=== PATIENT | female | born 1995 | race African-American/Black ===

== ENCOUNTER → 2018-01-11 | Outpatient (CLI) | payer OTHER ==
[~2018-01-11] MED LIST: MTR600X PO; OXYC5TAB PO; TRAZ50TA35 PO
[2018-01-11 13:43] LABS: BASO % 0.2 %; BASO ABS # 0.02 K/uL (0-0.2); EOS % 0.6 %; EOS ABS # 0.05 K/uL (0-0.5); HEMATOCRIT 42.6 % (37-47); HEMOGLOBIN 13.7 g/dL (12.0-16.0); IG# 0.01 K/uL (0.00-0.02); LYMPH % 24.5 %; LYMPH ABS # 2.09 K/uL (1.2-3.4); MEAN CORPUSCULAR HEMOGLOBIN 28.3 pg (25-34); MEAN CORPUSCULAR HGB CONC 32.2 g/dl (32-36); MEAN PLATELET VOLUME 13.7 fL (7.4-10.4); MONO % 3.4 %; MONO ABS # 0.29 K/uL (0.11-0.59); NEUT % 71.2 %; NEUT ABS # 6.06 K/uL (1.4-6.5); PLATELET COUNT 222 K/uL (130-400); RED CELL DISTRIBUTION WIDTH CV 12.9 % (11.5-14.5); RED CELL DISTRIBUTION WIDTH SD 41.6 fL (36.4-46.3); WHITE BLOOD COUNT 8.52 K/uL (4.8-10.8)
[2018-01-11 14:37] LABS: BLOOD UREA NITROGEN 12 mg/dl (7-18); CALCIUM 9.2 mg/dl (8.5-10.1); CARBON DIOXIDE 26 mmol/L (21-32); CHOLESTEROL 169 mg/dl (0-200); CREATININE 0.86 mg/dl (0.60-1.20); GLUCOSE,FASTING 99 mg/dl (70-99); POTASSIUM 3.9 mmol/L (3.5-5.1); SODIUM 139 mmol/L (136-145)
[2018-01-11 14:48] LABS: LDL CHOLESTEROL CALCULATED 90 mg/dl
== END | disposition home or self-care (01) ==
LOC: C.LABPBG 09:21
PROVIDERS: ATTEND Psychiatry & Neurology Psychiatry
DX: Z79.899 Other long term (current) drug therapy (principal); F31.60 Bipolar disorder, current episode mixed, unspecified; F41.9 Anxiety disorder, unspecified

== ENCOUNTER 2018-05-29 09:18 | Emergency (ER) | payer OTHER ==
[~2018-05-29] VITALS: Ht 149.9 cm; Wt 58.4 kg
[2018-05-29 09:20] VITALS: BP 116/84; PULSE 97; TEMP 36.8; O2SAT 100; Ht 149.9 cm; Wt 58.4 kg
[2018-05-29] MEDS ORDERED: PROPARACAINE HCL 0.5% OP SOLN 15 ML BTL OP STA (09:25)
[2018-05-29] MEDS ORDERED: ERYTHROMYCIN OP OINT 1 GM PKT OPB STA (10:19)
--- NOTE | 2018-05-29 10:25 | EMERGENCY ROOM VISIT NOTE ---
ED Visit Note First contact with patient: 09:23 CHIEF COMPLAINT: Bilateral eye redness and burning. HISTORY OF PRESENT ILLNESS: This 22-year-old female presents to ER with chief complaint of bilateral eye redness and burning sensation. The patient states that she slept last night with her monthly contacts and and woke up at 230 this morning with both her eyes watery and burning. She states she was rubbing her eyes all night. She took the contacts out. The patient denies any visual changes. The patient denies any purulent drainage from the eyes. REVIEW OF SYSTEMS: 6 system review was performed and was negative unless stated otherwise in history of present illness. PMH: The patient is healthy; SOCIAL HISTORY: Patient lives alone. The patient denies any tobacco use but admits to occasional alcohol use. PHYSICAL EXAM: Vital Signs: Were reviewed reviewed Nurse's notes. GENERAL: This is a healthy-appearing 22-year-old female who is uncomfortable from the eye problem. MENTAL Status: Alert and oriented 3. EYES: The pupils are round , equal, and react to light. EOMs are full. There is discharge of clear tears from both eyes which are injected. There is no foreign body visible under athe eyelid even after lid eversion. No foreign body was seen embedded in the cornea. Slit lamp exam revealed: The cornea was clear and no hyphema was seen. Fluorescein uptake was observed with ultraviolet light at the 6 o'clock position over the iris of the right eye. Left eye was clear. EMERGENCY DEPARTMENT COURSE: The fluorescein was irrigated away and erythromycin eye ointment was put into both eyes. The patient was given the remainder of the ointment to take home and use as directed. The patient was discharged home in stable condition. DIAGNOSIS: Right corneal abrasion Bilateral conjunctivitis DISCHARGE INSTRUCTIONS AND TREATMENT: Put the erythromycin ointment into each eye 4 times a day. . Return here or see an orthopedic specialist if it is not improving in 2 days. Take ibuprofen and/or Tylenol as needed for pain. Do not wear your contacts until symptoms have resolved. Current/Historical Medications Scheduled PRN Ibuprofen (Ibuprofen), 600 MG PO Q4H PRN for Pain, BARRIOS, Cramping, or Fever Oxycodone/Acetaminophen 5MG/325MG (Roxicet 5MG/325MG), 1 TAB PO Q4H PRN for Pain - Pain Scale 1-5 Miscellaneous Medications Trazodone Hcl (Trazodone), 50 MG PO Allergies Coded Allergies: No Known Allergies (Unverified , 01/14/16) Vital Signs Date Time Temp Pulse Resp B/P (MAP) Pulse Ox O2 Delivery O2 Flow Rate FiO2 05/29/18 09:20 36.8 97 18 116/84 100 Room Air Medications Administered Medications (Trade) Dose Ordered Sig/Joshua Route Start Time Stop Time Status Last Admin Dose Admin Proparacaine HCl (Alcaine 0.5% Oph Soln) 2 drops NOW STAT OP 05/29/18 09:25 05/29/18 09:26 DC 05/29/18 09:47 2 DROPS Departure Information Referrals No Doctor, Assigned (PCP) Patient Instructions My [facility]
[2018-05-29] MEDS ORDERED: ERYOPO OPB (10:27)
[2018-05-29] MEDS ORDERED: ERYTHROMYCIN OP OINT 5 MG/GM 3.5 GM TUBE ONE (10:33)
[2018-05-29] MEDS ORDERED: ERYTHROMYCIN OP OINT 5 MG/GM 3.5 GM TUBE OPB ONE (10:45)
== END 2018-05-29 10:43 | disposition home or self-care (01) ==
LOC: C.EDB 09:19 → C.EDA 10:43
DX: S05.01XA Injury of conjunctiva and corneal abrasion without foreign body, right eye, initial encounter (principal); H10.9 Unspecified conjunctivitis; X58.XXXA Exposure to other specified factors, initial encounter

== ENCOUNTER 2019-01-11 01:20 | Inpatient (IN) ==
[2019-01-11] MEDS ORDERED: LACTATED RINGER'S 1,000 ML IV SCH ×2 (01:30→02:29)
[2019-01-11] MEDS ORDERED: CITRIC ACID/SODIUM CITRATE 15 ML UDC PO SCH (01:30)
[2019-01-11] MEDS ORDERED: CEFAZOLIN 2000MG 2,000 MG/15 ML SYR IV SCH (01:30)
--- NOTE | 2019-01-11 01:33 | History & Physical Report ---
Date of Service January 11, 2019 Assessment & Plan (1) Spontaneous onset of labor: 23yo @ 36 01/27, spontaneous labor with h/o with desire for repeat. Will obtain labs, EFM/Rollins, Ancef/bicitra, proceed to OR. I discussed with her RBA of section, she is agreeable to this. Informed consent obtained. Questions answered. History of Present Illness Chief Complaint: Spontaneous labor, h/o x 1. Desire for repeat. Primary Care Provider: NO PCP 23yo @ 35 01/27 presents in spontaneous labor. Rupture of membranes approx 12am. complicated by h/o x 1, desire for repeat. GBS carrier. Bipolar disorder - no meds. She called on-call at 12a, stating clear fluid ROM with no contractions. She was instructed to come to [facility], had plans to drop off her son on the way to the hospital. About 20 minutes later, she called L&D screaming and stating she was in severe pain, with blood everywhere. She was instructed by L&D nurses to call 911 and come to the hospital immediately. I called patient back, trying to get more information, phone cut out. I called boyfriend's cell phone, he stated he was driving her to the hospital in his car, but stuck behind a tractor-trailer. I instructed him to call 911 to get assistance through traffic to be able to get to [facility] as quickly as possible. Upon arrival to L&D, patient is in extreme pain, is writhing in bed, states she has pain with contractions but not in-between. Allergies Allergy/AdvReac Type Severity Reaction Status Date / Time No Known Allergies Allergy Verified 01/09/19 13:50 Home Medications Home Medications Medication Instructions Recorded Confirmed Type PNV cmb#95-ferrous fumarate-FA 1 tab PO QAM 01/09/19 01/09/19 History [] ondansetron 4 mg PO TID PRN 01/09/19 01/09/19 History Patient History Medical History Nausea and vomiting after administration of anesthetic agent SEVERE N/V DURING/AFTER PREVIOUS No known health problems Surgical History History of section History of wisdom tooth extraction Social History Preferred Language: [place] marital status: Single Current Living Situation: Family Feels Safe at Home: Yes Smoking Status: Never smoker Hx Alcohol Use: No Hx Substance Use: No Review of Systems All systems reviewed & are unremarkable except as noted in HPI & below Physical Exam Vital Signs (Past 24 Hours): Gen: AAOx3 NAD CV: RRR L: CTAB Abd: soft, gravid. Ext: no edema SVE: /-2. Grossly ruptured, red-tinged amniotic fluid. FHT cat 1, toco Q 2 min
[2019-01-11] MEDS ORDERED: CITRIC ACID/SODIUM CITRATE 15 ML UDC ONE (01:39)
[2019-01-11 01:54] LABS: Nucleated RBC # (auto) 0.02 K/uL (0-0); Nucleated RBC % (auto) 0.2 %
[2019-01-11 02:01] LABS: Hematocrit (blood only) 35.1 % (37-47); Hemoglobin 11.8 g/dL (12.0-16.0); Mean Corpuscular Volume 87.1 fL (80-100); RDW Coefficient of Variation 13.7 % (11.5-14.5); RDW Standard Deviation 43.4 fL (36.4-46.3); Red Blood Count 4.03 M/uL (4.2-5.4); White Blood Count 10.42 K/uL (4.8-10.8)
[2019-01-11] MEDS ORDERED: fentaNYL citrate 100 MCG/2 ML VIAL ONE (02:04)
[2019-01-11] MEDS ORDERED: MoRPHine SULFATE PF 1 MG/ML 10 ML AMP/VIAL ONE (02:04)
[2019-01-11 02:11] LABS: Mean Corpuscular Hgb Conc 33.6 g/dL (32-36); Platelet Count 144 K/uL (130-400)
[2019-01-11 02:13] LABS: Basophils # (auto) 0.02 K/uL (0-0.2); Basophils % (auto) 0.2 %; Eosinophils # (auto) 0.04 K/uL (0-0.5); Eosinophils % (auto) 0.4 %; Immature Granulocytes # (auto) 0.02 K/uL (0.00-0.02); Immature Granulocytes % (auto) 0.2 %; Lymphocytes # (auto) 3.15 K/uL (1.2-3.4); Lymphocytes % (auto) 30.2 %; Monocytes # (auto) 0.71 K/uL (0.11-0.59); Monocytes % (auto) 6.8 %; Neutrophils # (auto) 6.48 K/uL (1.4-6.5); Neutrophils % (auto) 62.2 %; Platelet Estimate Normal (Normal)
[2019-01-11] MEDS ORDERED: ONDANSETRON INJ 2 MG/ML 2 ML VIAL ONE (02:51)
[2019-01-11] MEDS ORDERED: KETOROLAC 30 MG/ML VIAL ONE (02:51)
[2019-01-11] MEDS ORDERED: METOCLOPRAMIDE HCL INJ 5 MG/ML 2 ML VIAL ONE (02:51)
[2019-01-11] MEDS ORDERED: OXYTOCIN 10 UNITS/ML VIAL ONE (02:51)
[2019-01-11] MEDS ORDERED: PHENYLEPHRINE 100MCG/ML 5ML SYR ONE (02:52)
--- NOTE | 2019-01-11 03:17 | Operative Report ---
Post Operative Report Pre & Post Diagnosis Operation Date: 01/11/19 01:50 Pre-Op Diagnosis: 1. Spontaneous Rupture of membranes with desire for Repeat Post-Op Diagnosis: same Procedure Operation Date: 01/11/19 01:50 Actual Procedures p Repeat low transverse Section in LD - Skyla Blanco DO Surgeon Skyla Blanco DO Blister Pack Operator A Bumbarger RN Estimated Blood Loss 700 Findings Consistent with Post-Op Diagnosis Viable male , Apgars 6/8, Wt 4#13. Normal appearing uterus, tubes, ovaries. Specimens Placenta, cord blood, cord gases. Drains Garcia, clear yellow Anesthesia Type Spinal Complications none Disposition Accompanied Patient To Recovery: Yes Disposition: L&D Indications 23yo @ 35 01/27 in spontaneous labor, history of x 1, desire for repeat. Description of Procedure Patient presented in spontaneous labor, history of section x1, desire for repeat. She was andie every 2 minutes, and severe pain, and making cervical change prior to . She is taken to the operating room, where spinal anesthesia was administered. She is prepared and draped in the usual sterile fashion in the supine position with a leftward tilt. She was infused with 2 g of Ancef preoperatively. Timeout was confirmed. A Pfannenstiel skin incision was made with a scalpel and her prior incision was removed. This incision was carried through to the underlying layer of the fascia. The fascia was nicked at midline, this ends incision was extended both bluntly and sharply. The superior aspect of the rectus abdominis muscle was grasped with [place] clamps x2, elevated off the underlying rectus abdominis muscles, and dissected. In a similar fashion the inferior aspect of the incision was dissected. The rectus abdominis muscles were midline. The peritoneum was entered bluntly digitally, this incision was extended bluntly. The bladder blade was placed. The bladder flap was taken down using Metzenbaum scissors. The low transverse uterine incision was made with a scalpel, this incision was extended bilaterally bluntly. The infant's face was at the incision site, in direct occiput posterior position. The head was delivered, nuchal cord x1 was noted and easily reduced. The anterior shoulder was delivered followed by the posterior shoulder, followed by the body. The cord was doubly clamped and cut the baby was handed over to waiting promotions assistant sales marketing, and a spontaneous cry was heard. A cord segment was obtained for cord gases. The placenta was delivered spontaneously intact with three-vessel cord. The uterus exteriorized, and cleared of all clots and debris. The uterus became firm and Pitocin was given. The hysterotomy incision was reapproximated using 0 Vicryl in a running locked stitch. Another stitch of the same suture was used to imbricate the incision. Posterior uterus was evaluated and found to be normal. The uterus was returned to the abdomen. The hysterotomy incision was noted to be hemostatic. The fascial incision was reapproximated using 0 Vicryl in a running stitch. The subcutaneous tissue was irrigated. This was then reapproximated with 2-0 plain gut suture. The skin incision was reapproximated using 0 Vicryl in a running subcuticular stitch. Steri-Strips and a bandage were applied. Sponge, instrument, needle counts were correct x2 at the conclusion of the delivery. The patient tolerated the procedure well, and she and baby are taken to the labor room to recover. I attest to the content of the Intraoperative Record and any orders documented therein. Any exceptions are noted below.
--- NOTE | 2019-01-11 03:26 | Anesthesiology Consultation ---
Date of Service January 11, 2019 Assessment & Plan (1) Encounter for pre-operative examination: Chart Review Chart Review: Acceptable Risk for Surgery and Patient NOT seen in Pre Admission Testing Consults Requested none ASA [id number] Proposed Anesthesia Anesthesia Type: Spinal Risk / Benefits Reviewed With: PT / POA / Parent / Guardian, Accepts Plan and I nformed Consent Obtained NPO Date Last Intake of Fluids: 01/10/19 Time Last Intake of Fluids: 19:00 Date Last Intake of Solids: 01/10/19 Last Intake of Solids Comment: 1900 History Surgery Operation Date: 01/11/19 01:50 Proposed Procedures p Section in - Skylatravis Blanco DO Allergies Allergy/AdvReac Type Severity Reaction Status Date / Time No Known Allergies Allergy Verified 01/09/19 13:50 Medications Home Medications Medication Instructions Recorded Confirmed Last Taken PNV cmb#95-ferrous fumarate-FA 1 tab PO QAM 01/09/19 01/09/19 Unknown [] ondansetron 4 mg PO TID PRN 01/09/19 01/09/19 Unknown Active Medications Generic Name Dose Route Start Last Admin Trade Name Freq PRN Reason Stop Dose Admin Cefazolin Sodium 2,000 mg in 15 mls @ 3.75 mls/min 01/11/19 01:30 01/11/19 02:02 Ancef 2000mg IV 01/11/19 04:00 3.75 mls/min TODAY@0130 PURVI Administration Protocol Past Medical History Medical History Nausea and vomiting after administration of anesthetic agent SEVERE N/V DURING/AFTER PREVIOUS No known health problems Past Surgical History Surgical History History of section History of wisdom tooth extraction Social History Smoking Status: Never smoker tobacco type: cigarettes Hx Alcohol Use: No Hx Substance Use: No Physical Exam Vital Signs Last Vital Signs Temp 37.0 C 01/11/19 03:17 Pulse 118 H 01/11/19 03:19 Resp 18 01/11/19 03:17 BP 110/58 L 01/11/19 03:18 Pulse Ox 100 01/11/19 03:19 Constitutional Gravid abdomen ENMT Mouth: no TMJ abnormality Thyromental Distance: > or= 3.5 Finger Breadths Mallampati Class: II Neck normal visual inspection Respiratory normal respiratory effort Cardiovascular Rate/Rhythm: regular rate and regular rhythm Neurologic moves all extremities Psychiatric Orientation: alert Testing Laboratory Results 01/11/19 01:37 Blood Type O Positive 01/11/19 01:37 Antibody Screen NEGATIVE 01/11/19 01:37
[2019-01-11] MEDS ORDERED: NALBUPHINE HCL INJ 10 MG/ML AMP IV PRN (03:27)
[2019-01-11] MEDS ORDERED: ONDANSETRON INJ 2 MG/ML 2 ML VIAL IV PRN ×2 (03:27→21:28)
[2019-01-11] MEDS ORDERED: HYDROmorphone INJ 0.5 MG/0.5 ML SYR IV PRN (03:27)
[2019-01-11] MEDS ORDERED: NALOXONE HCL 0.4 MG/1 ML VIAL/CARP IV PRN (03:27)
[2019-01-11] MEDS ORDERED: NALOXONE HCL 0.08 MG in SYRINGE 1.8 ML IV PRN (03:27)
[2019-01-11] MEDS ORDERED: LACTATED RINGER'S 500 ML IV PRN (03:27)
[2019-01-11] MEDS ORDERED: ePHEDrine sulfate 50 MG/ML AMP IV PRN (03:27)
[2019-01-11] MEDS ORDERED: MoRPHine SULFATE PF 1 MG/ML 10 ML AMP/VIAL INT SPINAL ONE (03:27)
[2019-01-11] MEDS ORDERED: MoRPHine SULFATE 2 MG/ML CARP IV PRN (03:27)
[2019-01-11] MEDS ORDERED: NALOXONE HCL 1 MG in SODIUM CHLORIDE 0.9% 1000ML 1,000 ML IV PRN (03:27)
[2019-01-11] MEDS ORDERED: DiphenhydrAMINE HCL 50 MG/ML VIAL IV PRN ×3 (03:27→21:28)
[2019-01-11] MEDS ORDERED: METOCLOPRAMIDE HCL 5 MG in SODIUM CHLORIDE 0.9% 50 ML IV PRN (03:27)
[2019-01-11] MEDS ORDERED: PROMETHAZINE HCL 6.25 MG in SODIUM CHLORIDE 0.9% 50 ML IV PRN (03:27)
[2019-01-11] MEDS ORDERED: DC INTRASPINAL MORPHINE SCH (03:30)
[2019-01-11] MEDS ORDERED: NO NARCOTICS OR SEDATIVES SCH (03:30)
[2019-01-11] MEDS ORDERED: SODIUM CHLORIDE 0.9% 1000ML 1,000 ML IV SCH (03:30)
--- NOTE | 2019-01-11 03:35 | Anesthesiology Progress Note ---
Date of Service January 11, 2019 Anesthesia Post Procedure Vital Signs Vital Signs: Temp Pulse Resp BP Pulse Ox 01/11/19 03:32 138 H 91 01/11/19 03:29 110 H 100 01/11/19 03:24 126 H 99 01/11/19 03:19 118 H 100 01/11/19 03:18 116 H 110/58 L 01/11/19 03:17 37.0 C 18 01/11/19 01:37 89 129/88 01/11/19 01:25 36.7 C 18 Notes Mental Status: alert / awake / arousable Nausea / Vomiting: adequately controlled Pain: adequately controlled Airway Patency, RR, SpO2: stable & adequate BP & HR: stable & adequate Hydration State: stable & adequate Neuraxial Anesthesia: was administered and sensory block is resolving Anesthetic Complications: no major complications apparent
[2019-01-11] MEDS ORDERED: MAGNESIUM HYDROXIDE SUSP 30 ML UDC PO PRN (03:50)
[2019-01-11] MEDS ORDERED: SENNA 8.6 MG TAB PO PRN (03:50)
[2019-01-11] MEDS ORDERED: SUPERCREAM 0.870% 15 GM JAR EXT PRN (03:50)
[2019-01-11] MEDS ORDERED: OXYTOCIN 30 UNITS in LACTATED RINGER'S 1,000 ML IV SCH (03:50)
[2019-01-11] MEDS ORDERED: DIPHTHERIA/TETANUS/PERTUSSIS 0.5 ML SYR/VIAL IM ONE (03:50)
[2019-01-11] MEDS ORDERED: HYDROCORTISONE ACETATE 25 MG SUPP PR PRN (03:50)
[2019-01-11] MEDS ORDERED: BENZOCAINE 20% AER SPR 82.5 GM CAN EXT PRN (03:50)
[2019-01-11 05:41] LABS: Base Excess Cord Venous Blood -2.6 mEq/L (-7.7-1.9); Cord Venous Blood HCO3 23 mmol/L (18.4-26.8); Cord Venous Blood PCO2 43 mmHg (30.4-57.2); Cord Venous Blood PO2 22 mmHg (14.1-43.3); Cord Venous Blood pH 7.35 (7.20-7.44); O2 Saturation Cord Venous Bld < 60.0 % (<68)
[2019-01-11 05:42] LABS: Base Excess Cord Arterial Bld -3.6 mEq/L (-9-1.8); CO2 Cord Arterial Blood 57 mmHg (39.1-73.5); HCO3 Cord Arterial Blood 25 mmol/L (19.7-28.5); PO2 Cord Arterial Blood 12.6 % (4.1-31.7); pH Cord Arterial Blood 7.26 (7.1-7.38)
[2019-01-11] MEDS: LACTATED RINGER'S 1,000 ML IV SCH ×2 (06:27→17:12)
[2019-01-11] MEDS: KETOROLAC 30 MG/ML VIAL IV PRN ×2 (08:14→15:27)
[2019-01-11] MEDS: SIMETHICONE 80 MG CHEW PO SCH ×4 (09:53→20:26)
[2019-01-11] MEDS: PRENATAL VITAMIN 1 TAB PO SCH (09:54)
[2019-01-11] MEDS: FERROUS SULFATE 325 MG TAB PO SCH (09:55)
[2019-01-11] MEDS: DOCUSATE SODIUM 100 MG CAP PO SCH ×2 (09:55→20:25)
[2019-01-11] MEDS: MEPERIDINE HCL 25 MG/ML CARP IV PRN ×5 (11:08→20:33)
--- NOTE | 2019-01-11 11:50 | Anesthesiology Progress Note ---
Date of Service January 11, 2019 Anesthesia Post Procedure Vital Signs Vital Signs: Temp Pulse Resp BP Pulse Ox 01/11/19 06:39 81 100 01/11/19 06:34 105 H 99 01/11/19 06:29 94 H 100 01/11/19 06:26 75 129/56 L 01/11/19 06:24 88 99 01/11/19 05:49 79 96 01/11/19 05:47 86 93 01/11/19 05:44 103 H 96 01/11/19 05:42 77 94 01/11/19 05:39 82 96 01/11/19 05:36 85 90 01/11/19 05:34 76 126/62 97 01/11/19 05:29 86 96 01/11/19 05:24 90 97 01/11/19 05:20 18 01/11/19 05:19 87 97 01/11/19 05:14 94 H 97 01/11/19 05:12 77 93 01/11/19 05:09 99 H 97 01/11/19 05:04 83 96 01/11/19 04:59 108 H 97 01/11/19 04:54 85 96 01/11/19 04:53 83 110/63 01/11/19 04:50 18 01/11/19 04:49 81 97 01/11/19 04:44 77 95 01/11/19 04:39 89 96 01/11/19 04:34 95 H 97 01/11/19 04:33 94 H 103/58 L 01/11/19 04:29 79 96 01/11/19 04:24 102 H 97 01/11/19 04:23 75 108/56 L 01/11/19 04:20 18 01/11/19 04:19 89 98 01/11/19 04:14 91 H 98 01/11/19 04:13 83 104/56 L 01/11/19 04:09 106 H 97 01/11/19 04:04 109 H 99 01/11/19 04:03 102 H 110/68 01/11/19 03:59 94 H 98 01/11/19 03:54 92 H 99 01/11/19 03:53 95 H 103/55 L 01/11/19 03:50 18 01/11/19 03:49 91 H 98 01/11/19 03:46 93 H 110/56 L 01/11/19 03:44 105 H 100 01/11/19 03:40 18 01/11/19 03:39 110 H 98 01/11/19 03:34 110 H 99 01/11/19 03:32 138 H 91 01/11/19 03:30 18 01/11/19 03:29 110 H 100 01/11/19 03:24 126 H 99 01/11/19 03:20 37.0 C 18 01/11/19 03:19 118 H 100 01/11/19 03:18 116 H 110/58 L 01/11/19 03:17 37.0 C 18 01/11/19 01:37 89 129/88 01/11/19 01:25 36.7 C 18 Pain Intensity Bilateral Lower Abdomen: Pain Intensity: 8 Notes Mental Status: alert / awake / arousable Patient Amnestic to Procedure: Yes Nausea / Vomiting: adequately controlled Pain: adequately controlled Airway Patency, RR, SpO2: stable & adequate BP & HR: stable & adequate Hydration State: stable & adequate Anesthetic Complications: no major complications apparent and Pt Satisfied with anesthetic care
[2019-01-11] MEDS ORDERED: KETOROLAC 30 MG/ML VIAL IV PRN (21:28)
[2019-01-11] MEDS ORDERED: PROMETHAZINE HCL 25 MG in SODIUM CHLORIDE 0.9% 50 ML IV PRN (21:28)
[2019-01-11] MEDS: IBUPROFEN 600 MG TAB PO PRN (23:54)
[2019-01-11] MEDS: OXYCODONE/ACETAMINOPHEN 5mg/325mg TAB PO PRN (23:56)
[2019-01-12] MEDS: IBUPROFEN 600 MG TAB PO PRN ×3 (03:55→19:04)
[2019-01-12] MEDS: OXYCODONE/ACETAMINOPHEN 5mg/325mg TAB PO PRN ×4 (03:57→21:06)
--- NOTE | 2019-01-12 07:07 | Obstetrical Progress Note ---
Date of Service <Christiano Conner DO - Last Filed: 01/12/19 07:07> January 12, 2019 Assessment & Plan <Christiano Conner DO - Last Filed: 01/12/19 07:07> (1) Status post section routine follow-up: -vital signs reviewed and WNL -last Hgb 11.8 -Blood type: O+, GBS+, Rubella Immune -pt doing well clinically -encourage ambulation, monitor and control pain with motrin tylenol, cont regular diet, monitor lochia -cont monitor PO intake Subjective <Christiano Conner - Last Filed: 01/12/19 07:07> 23 y/o POD1 found in bed this morning in NAD. Reports no acute overnight events. Pt states that she has no pain other than appropriate soreness. Pt has not been able to tolerate PO food intake 2/2 nausea and decreased appetite. Shows interest in food however, tolerating PO liquids. Able to ambulate without issue. She is bottle feeding without issue. No issues with voiding, no BM yet. No other acute concerns or complaints. Physical Exam <Christiano Conner - Last Filed: 01/12/19 07:07> Vital Signs (Past 24 Hours) Last Vital Signs Temp 36.6 C 01/12/19 00:05 Pulse 66 01/12/19 00:05 Resp 18 01/12/19 00:05 BP 103/67 01/12/19 00:05 Pulse Ox 98 01/11/19 21:30 Constitutional WD/WN, vitals as above Eyes conjunctivae normal ENMT external ear and nose normal, oropharynx normal Respiratory normal respiratory effort, lungs clear to auscultation Cardiovascular RRR, no murmur, no edema Gastrointestinal (Abdomen) moderate lower abd tenderness Incision C/D/I FBU Skin no rashes, warm and dry Psychiatric A+Ox3, euthymic affect Lymphatic no LE swelling, no calf tenderness Results & Data <Christiano Conner - Last Filed: 01/12/19 07:07> Medications Administered Current Inpatient Medications Benzocaine (Dermoplast Pain Relieving [place]) 1 appln EXT UD PRN PRN Reason: use on skin as needed Stop: 02/10/19 03:49 Bisacodyl (Dulcolax) 5 mg PO 2000 [facility] Stop: 01/12/19 20:01 Bisacodyl (Dulcolax) 10 mg UT PRN PRN PRN Reason: Constipation Stop: 02/12/19 03:08 Cocaine HCl (Supercream 0.870%) 1 gm EXT UD PRN PRN Reason: hemmorrhoidal inflammation Stop: 01/25/19 03:49 Diphenhydramine HCl (Benadryl) 25 mg IV QID PRN PRN Reason: Itching Stop: 02/10/19 21:27 Diphenhydramine HCl (Benadryl Capsule) 25 mg PO QID PRN PRN Reason: Itching Stop: 02/10/19 21:27 Docusate Sodium (Colace) 100 mg PO BID [facility] Stop: 02/10/19 08:59 Last Admin: 01/11/19 20:25 Dose: 100 mg Documented by: Ferrous Sulfate (Feosol) 325 mg PO QAM [facility] Stop: 02/10/19 08:59 Last Admin: 01/11/19 09:55 Dose: 325 mg Documented by: Hydrocortisone (Anusol Hc) 25 mg UT BID PRN PRN Reason: Hemorrhoids Stop: 02/10/19 03:49 Promethazine HCl 25 mg/ Sodium (Chloride) 51 mls @ 204 mls/hr IV Q4H PRN PRN Reason: Nausea And Vomiting Stop: 02/10/19 21:27 Lactated Ringer's (Lr) 1,000 mls @ 125 mls/hr IV .Q8H PURVI Stop: 02/10/19 03:49 Last Admin: 01/11/19 17:12 Dose: 125 mls/hr Documented by: Ibuprofen (Motrin) 600 mg PO Q4H PRN PRN Reason: Pain Stop: 02/10/19 03:49 Last Admin: 01/12/19 03:55 Dose: 600 mg Documented by: Ketorolac Tromethamine (Toradol) 30 mg IV Q6H PRN PRN Reason: Pain Stop: 01/16/19 21:27 Magnesium Hydroxide (Milk Of Magnesia) 30 ml PO HS PRN PRN Reason: Constipation Stop: 02/10/19 03:49 Ondansetron HCl (Zofran) 4 mg IV Q4H PRN PRN Reason: Nausea And Vomiting Stop: 02/10/19 21:27 Oxycodone/Acetaminophen (Percocet 5mg/325mg) 1 - 2 tab PO Q4H PRN PRN Reason: Pain Stop: 01/25/19 21:27 Last Admin: 01/12/19 03:57 Dose: 2 tab Documented by: Prenat Multivit/[place]/Iron/Folic Ac ( Vitamin) 1 tab PO QAM PURVI Stop: 02/10/19 08:59 Last Admin: 01/11/19 09:54 Dose: 1 tab Documented by: Sennosides (Senokot) 17.2 mg PO HS PRN PRN Reason: Constipation Stop: 02/10/19 03:49 Simethicone (Mylicon) 80 mg PO QID PURVI Stop: 02/10/19 08:59 Last Admin: 01/11/19 20:26 Dose: 80 mg Documented by: <Melinda Martinez MD, FACOG - Last Filed: 01/12/19 07:55> Co-Signing Physician Notes Resident Physician Supervision Note: I interviewed and examined the patient. Discussed with Dr. Conner and agree with findings and plan as documented in the note. Any exceptions or clarifications are listed here: When I entered the room, patient was anxious and tearful. she notes she has not had good pain management all night. Notes has had some oral pain meds but did not help alot. Very anxious about this and more painful then last time. Will get on top of this. Patient also notes she sees Dr. Berg and requests to see her/psych today. There is apparantly a plan for pp meds but she does not know what it is. Documented By: Melinda Martinez MD, FACOG Resident Activity Tracking <Christiano Conner DO - Last Filed: 01/12/19 07:07> Resident Involvement: Resident Care Provided Care Provided: OB Delivery
[2019-01-12 07:15] LABS: Mean Corpuscular Hgb Conc 33.6 g/dL (32-36)
[2019-01-12 07:32] LABS: Hematocrit (blood only) 26.8 % (37-47); RDW Coefficient of Variation 13.7 % (11.5-14.5); RDW Standard Deviation 43.3 fL (36.4-46.3); Red Blood Count 3.08 M/uL (4.2-5.4); White Blood Count 12.54 K/uL (4.8-10.8)
[2019-01-12 07:42] LABS: Platelet Count 106 K/uL (130-400)
[2019-01-12 07:44] LABS: Basophils # (auto) 0.03 K/uL (0-0.2); Basophils % (auto) 0.2 %; Eosinophils # (auto) 0.06 K/uL (0-0.5); Eosinophils % (auto) 0.5 %; Immature Granulocytes # (auto) 0.02 K/uL (0.00-0.02); Immature Granulocytes % (auto) 0.2 %; Lymphocytes # (auto) 2.78 K/uL (1.2-3.4); Lymphocytes % (auto) 22.2 %; Monocytes # (auto) 0.57 K/uL (0.11-0.59); Monocytes % (auto) 4.5 %; Neutrophils # (auto) 9.08 K/uL (1.4-6.5); Neutrophils % (auto) 72.4 %; Platelet Estimate Decreased (Normal); RBC Morphology Unremarkable
[2019-01-12] MEDS: FERROUS SULFATE 325 MG TAB PO SCH (08:28)
[2019-01-12] MEDS: PRENATAL VITAMIN 1 TAB PO SCH (08:28)
[2019-01-12] MEDS: DOCUSATE SODIUM 100 MG CAP PO SCH ×2 (08:28→21:06)
[2019-01-12] MEDS: SIMETHICONE 80 MG CHEW PO SCH ×4 (08:29→21:06)
--- NOTE | 2019-01-12 13:31 | Anesthesiology Progress Note ---
Date of Service January 12, 2019 Anesthesia Post Procedure Vital Signs Vital Signs: Temp Pulse Resp BP Pulse Ox 01/12/19 08:00 36.4 C L 62 18 103/69 100 01/12/19 00:05 36.6 C 66 18 103/67 01/11/19 21:30 18 98 01/11/19 20:35 36.7 C 80 18 117/80 98 01/11/19 18:42 20 98 01/11/19 17:45 20 96 01/11/19 16:45 20 100 01/11/19 15:45 36.8 C 78 20 96/57 L 98 01/11/19 14:02 22 100 01/11/19 14:00 20 97 Pain Intensity Bilateral Lower Abdomen: Pain Intensity: 9 Notes Mental Status: alert / awake / arousable Patient Amnestic to Procedure: Yes Nausea / Vomiting: adequately controlled Pain: adequately controlled Airway Patency, RR, SpO2: stable & adequate BP & HR: stable & adequate Hydration State: stable & adequate Neuraxial Anesthesia: was administered and sensory block resolved Anesthetic Complications: no major complications apparent and Pt Satisfied with anesthetic care
--- NOTE | 2019-01-12 17:41 | Psychiatric Consultation ---
Date of Consultation January 12, 2019 Impression / Recommendations Impression 23-year-old female s/p delivery at 36-weeks gestation. Pt diagnosed with bipolar disorder, type 1; PTSD; and cannabis abuse - no reported use since learning of . Pt follows with Dr. Berg as an outpatient and records from [facility] reviewed. Discussed with patient her last medication regimen as well as the possibility of quetiapine being mentioned as a medication option post-. Pt reported desire to return to previous medications. She is agreeable to restarting oxcarbazepine at 150mg BID and Vraylar 1.5mg daily. Risks and benefits reviewed. Vraylar prescription sent to preferred pharmacy as non-formulary in the hospital, boyfriend will warehouse picker and bring to unit. Pt is planning to bottle feed exclusively, highly encouraged to inform medical providers should this change. Fasting glucose and lipid panel ordered for tomorrow AM as last drawn 01/11/2018. Pt will also be provided with trazodone 50mg qHS for reported insomnia as she reports she has not been sleeping well. Agree with patient's desire to resume medications to prevent mood instability in the . Pt denies any thoughts of harm toward herself or her baby. Denies attachment concerns at this time. Will have liaison call [facility] on Monday to schedule follow-up appointment with Dr. Begr, as patient has no-showed for her last several appointments. Pt encouraged to request for return visit should other concerns arise. Appreciate the opportunity to participate in the care of this patient. Dr. Shilpa Berg was directly involved in review and discussion of the patient's case and participated in medical decision making regarding treatment recommendations. Risk Factors Assessment Male: No Do You Have Access To A Gun?: No Health Problems: No Mental Health Diagnoses: Yes Substance Use Disorders: Yes (no reported use since learning of ) Previous Attempt: No Family History of Suicide: No Previous Psychiatric Hospitalization: Yes Hopelessness: No Protective Factors Assessment : No Responsible for Young Children: Yes Stable Relationships: No CPT Code Initial Consultation: 50531 Psych History Identifying Data 23-year-old female who delivered her second child on 01/11/19 via section following spontaneous onset of labor. Pt has a psychiatric history of bipolar disorder, PTSD, and cannabis abuse - discontinuing medications when learned of . Psychiatric consultation requested as patient sees Dr. Berg as an outpatient and is interested in medication restart now that she has delivered. Chief Complaint "I've just been more emotional. She prescribes my meds and I want to go back on." History of Present Illness Deena Shelton is a 23-year-old female admitted medically with spontaneous onset of labor at 36-weeks gestation. Pt delivered on 01/11/19 via section. Pt had requested psychiatric consultation given that her psychotropic medications had been discontinued during her . Pt has a history of bipolar disorder, PTSD, and cannabis abuse. She follows with Dr. Berg as an outpatient and verbalizes desire to return to pre- medications. Pt reports feeling more "emotional" over the course of her and has been interested in re-starting medications when she was able. Pt verifies that she is planning to bottle fed exclusively. Pt had reported being off medications for "10 months" and states she has noticed episodes of increased sadness and tearfulness. She reported feeling "more manic" over the summer. Pt denies any acute psychiatric concerns and states she wishes to resume medications to avoid worsening of mood. Pt denies thoughts to harm herself or her baby. Reviewed previous medications regimen along with previous response to quetiapine. Pt reports desire to resume medication regimen from prior to - oxcarbazapine 300mg BID and Vraylar 4.5mg daily. We discussed initiating treatment at lower doses to avoid side effects, especially given recent delivery. Pt denies SI/HI, A/V hallucinations, paranoia, OCD, and appetite concerns. Anxiety is elevated due to delivering before her scheduled on 01/28/19. Past Psychiatric History Previous Psych History: Outpatient medication management with Dr. Berg, [facility]; seen by Adriane Schmidt for therapy; no history of suicide attempt, 3 known inpatient psychiatric admissions ( - 2008, 2012, 2017) Current Psychiatric Diagnosis: Bipolar disorder, type 1; PTSD; cannabis abuse Outpatient Services: Psychiatrist - Dr. Berg; [facility] Therapist - Adriane Schmidt Previous Psych Admissions: [facility] - [facility]: 2008, 2012, 2017 Do You Have Access To A Gun?: No History of Previous Suicide Attempt: No Past Medication Trials: Abilify - may have been helpful although at the time was stopped due to jitteriness although patient reports that was from anxiety. not willing to retry Klonopin helpful lamictal-was helpful but hated the taste Seroquel IR - caused extreme weight gain of almost 70 lbs Seroquel XR did not cause weight gain, per patient Risperdal - trial years ago, pt did not recall impact but has since stated did not work for her trazodone made groggy but helped with sleep vistaril Ambien prazosin Buspar Tenex lithium-helped but was noncompliant with blood draws at the time Celexa Benadryl, various issues of noncomplaince with meds thoruhgout med trials Saphris - failed even when had reported good compliance at full dosage Geodon - failed Intuniv Latuda - failed Gabapentin Invega - stopped few weeks into trial December 2016, 6mg lowered to 3mg before stopping over muscular aches Zyprexa - significant wt gain but was effective Depakote - stopped due to not being on control Lamotrigine - noncompliant, kept missing doses and having to resume titration (never got over 100mg dose) Vraylar - stopped 05/2018 when found out Trileptal - stopped 05/2018 when found out Klonopin - stopped 05/2018 when found out . Allergies Allergy/AdvReac Type Severity Reaction Status Date / Time No Known Allergies Allergy Verified 01/09/19 13:50 Home Medications Home Medications Medication Instructions Recorded Confirmed Type vit-iron fum-folic ac 1 tab PO DAILY 01/11/19 01/11/19 History [ Vitamin] Family History Mother and sister with bipolar disorder and opioid addiction; mother with alcoholism - no family history of suicide attempts Substance Abuse History no drug or alcohol use since learning of Personal History Highest Grade Completed Comment: completed [employer] Number Of Children: 2 Beliefs That Will Affect Care: None Patient History Medical History Nausea and vomiting after administration of anesthetic agent SEVERE N/V DURING/AFTER PREVIOUS No known health problems Surgical History History of section History of wisdom tooth extraction Social History Preferred Language: Maldivian Communication Ability: Effective Senior Qa Analyst Required: No Beliefs That Will Affect Care: None marital status: Single Current Living Situation: Family Other Information That Helps Us Care for You: No Feels Safe at Home: Yes Safety Concerns: Feels Safe At This Time Smoking Status: Never smoker Hx Alcohol Use: No Hx Substance Use: No Physical Exam Psychiatric Orientation: alert, oriented x 3 and cooperative Apperance: appropriately dressed (in hospital gown), appropriately groomed and appeared stated age Eye Contact: + fair eye contact Motor Behavior: no abnormal motor movements (observed while laying in bed) Speech: normal rate/rhythm/volume of speech Affect: + blunted affect Mood: + depressed mood and + anxious mood "I'm just more emotional" Thought Process: goal directed thought process, linear/logical thought process and clear/coherent thought process Thought Content: reality based without delusions Suicidal Thoughts: denies suicidal thoughts Homicidal Thoughts: denies homicidal thoughts Hallucinations: no auditory hallucinations and no visual hallucinations Cognition: recent memory grossly intact, remote memory grossly intact, attention grossly intact and language grossly intact Estimated Intelligence: average estimated intelligence Insight: good insight Judgement: good judgement Vital Signs (Past 24 Hours) Last Vital Signs Temp 36.4 C L 01/12/19 08:00 Pulse 62 01/12/19 08:00 Resp 18 01/12/19 08:00 BP 103/69 01/12/19 08:00 Pulse Ox 100 01/12/19 08:00 Review of Systems Constitutional: reports manageable pain related to delievery Cardiovascular: denied Respiratory: denied Gastrointestinal: episodes of nausea Neurological: denied Psychiatric: denies symptoms other than stated above Total of at least 10 systems reviewed, pertinent positives as above and in HPI. Results & Data Medications Administered Docusate Sodium (Colace) 100 mg PO BID [facility] Stop: 02/10/19 08:59 Last Admin: 01/12/19 08:28 Dose: 100 mg Documented by: [id number] Admin: 01/11/19 20:25 Dose: 100 mg Documented by: [id number] Admin: 01/11/19 09:55 Dose: 100 mg Documented by: [id number] Ferrous Sulfate (Feosol) 325 mg PO QAM [facility] Stop: 02/10/19 08:59 Last Admin: 01/12/19 08:28 Dose: 325 mg Documented by: [id number] Admin: 01/11/19 09:55 Dose: 325 mg Documented by: [id number] Lactated Ringer's (Lr) 1,000 mls @ 125 mls/hr IV .Q8H [facility] Stop: 02/10/19 03:49 Last Admin: 01/11/19 17:12 Dose: 125 mls/hr Documented by: [id number] Infusion: 01/11/19 12:30 Dose: 125 mls/hr Documented by: [id number] Infusion: 01/11/19 06:27 Dose: 0 mls/hr Documented by: [id number] Admin: 01/11/19 06:27 Dose: 125 mls/hr Documented by: [id number] Ibuprofen (Motrin) 600 mg PO Q4H PRN PRN Reason: Pain Stop: 02/10/19 03:49 Last Admin: 01/12/19 13:58 Dose: 600 mg Documented by: [id number] Admin: 01/12/19 03:55 Dose: 600 mg Documented by: [id number] Admin: 01/11/19 23:54 Dose: 600 mg Documented by: [id number] Ketorolac Tromethamine (Toradol) 30 mg IV Q6H PRN PRN Reason: Pain Stop: 01/16/19 21:27 Last Admin: 01/12/19 07:37 Dose: 30 mg Documented by: [id number] Oxycodone/Acetaminophen (Percocet 5mg/325mg) 1 - 2 tab PO Q4H PRN PRN Reason: Pain Stop: 01/25/19 21:27 Last Admin: 01/12/19 11:17 Dose: 1 tab Documented by: [id number] Admin: 01/12/19 03:57 Dose: 2 tab Documented by: [id number] Admin: 01/11/19 23:56 Dose: 1 tab Documented by: [id number] Prenat Multivit/Dairy Equipment Installer/Iron/Folic Ac ( Vitamin) 1 tab PO QAM [facility] Stop: 02/10/19 08:59 Last Admin: 01/12/19 08:28 Dose: 1 tab Documented by: [id number] Admin: 01/11/19 09:54 Dose: 1 tab Documented by: [id number] Simethicone (Mylicon) 80 mg PO QID [facility] Stop: 02/10/19 08:59 Last Admin: 01/12/19 13:59 Dose: 80 mg Documented by: [id number] Admin: 01/12/19 08:29 Dose: 80 mg Documented by: [id number] Admin: 01/11/19 20:26 Dose: 80 mg Documented by: [id number] Admin: 01/11/19 17:03 Dose: 80 mg Documented by: [id number] Admin: 01/11/19 14:01 Dose: 80 mg Documented by: [id number] Admin: 01/11/19 09:53 Dose: 80 mg Documented by: [id number]
[2019-01-12] MEDS ORDERED: BISACODYL 5 MG TABEC PO SCH (20:00)
[2019-01-12] MEDS: OXcarbazepine 150 MG TABLET PO SCH (21:06)
[2019-01-12] MEDS: TRAZODONE HCL 50 MG TAB PO SCH (23:19)
[2019-01-13] MEDS ORDERED: BISACODYL 10 MG SUPP PR PRN (03:09)
[2019-01-13] MEDS: IBUPROFEN 600 MG TAB PO PRN ×3 (04:47→16:56)
[2019-01-13 07:41] LABS: Hematocrit (blood only) 28.6 % (37-47); Hemoglobin 9.4 g/dL (12.0-16.0)
[2019-01-13 08:04] LABS: Glucose Fasting 70 mg/dl (70-99)
[2019-01-13 08:10] LABS: Chol HDL Ratio 3; Cholesterol 240 mg/dl (0-200); HDL Cholesterol 86 mg/dl; LDL Cholesterol Calculated 123 mg/dl; Triglycerides 157 mg/dl (0-150); VLDL Cholesterol 31 mg/dl
--- NOTE | 2019-01-13 08:46 | Obstetrical Progress Note ---
Date of Service January 13, 2019 Postoperative day #2 from section patient is well she does feel somewhat more discomfort in her last but is tolerating pain with oral pain medication she is ambulating no extremity pain minimal bleeding Assessment & Plan (1) Status post section routine follow-up: Postoperative day #2 continue current care Physical Exam Vital Signs (Past 24 Hours) Last Vital Signs Temp 36.8 C 01/12/19 23:20 Pulse 93 H 01/12/19 23:20 Resp 18 01/12/19 23:20 BP 110/74 01/12/19 23:20 Pulse Ox 99 01/12/19 15:51 Vital signs are stable she is afebrile abdomen soft nontender uterus firm incision clean dry and intact extremity exam negative
[2019-01-13] MEDS: OXYCODONE/ACETAMINOPHEN 5mg/325mg TAB PO PRN ×4 (09:02→20:44)
[2019-01-13] MEDS: OXcarbazepine 150 MG TABLET PO SCH ×2 (09:03→20:37)
[2019-01-13] MEDS: DOCUSATE SODIUM 100 MG CAP PO SCH ×2 (09:03→20:36)
[2019-01-13] MEDS: PRENATAL VITAMIN 1 TAB PO SCH (09:03)
[2019-01-13] MEDS: SIMETHICONE 80 MG CHEW PO SCH ×4 (09:03→20:45)
[2019-01-13] MEDS: FERROUS SULFATE 325 MG TAB PO SCH (09:03)
[2019-01-13] MEDS ORDERED: TRAZODONE HCL 50 MG TAB PO PRN (10:57)
[2019-01-13 18:34] VITALS: O2SAT 98
[2019-01-13] MEDS: TRAZODONE HCL 50 MG TAB PO SCH (23:55)
[2019-01-14] MEDS: IBUPROFEN 600 MG TAB PO PRN (06:21)
--- NOTE | 2019-01-14 07:20 | Obstetrical Progress Note ---
Date of Service January 14, 2019 Postop day #3 the patient is doing well ambulating well tolerating oral diet the psych team has seen the patient and has follow-up and has her on the correct medication she states patient has no extremity pain Assessment & Plan (1) Status post section routine follow-up: Home, psych f/u Physical Exam Vital Signs (Past 24 Hours) Last Vital Signs Temp 36.6 C 01/13/19 23:45 Pulse 71 01/13/19 23:45 Resp 18 01/13/19 23:45 BP 111/75 01/13/19 23:45 Pulse Ox 98 01/13/19 15:00 Abdomen is soft nontender uterus is firm nontender incision clean dry and intact extremity exam negative
[2019-01-14] MEDS: OXYCODONE/ACETAMINOPHEN 5mg/325mg TAB PO PRN (08:53)
[2019-01-14] MEDS: PRENATAL VITAMIN 1 TAB PO SCH (09:09)
[2019-01-14] MEDS: OXcarbazepine 150 MG TABLET PO SCH (09:09)
[2019-01-14] MEDS: FERROUS SULFATE 325 MG TAB PO SCH (09:09)
[2019-01-14] MEDS: SIMETHICONE 80 MG CHEW PO SCH (09:09)
[2019-01-14] MEDS: DOCUSATE SODIUM 100 MG CAP PO SCH (09:09)
[2019-01-14 09:46] VITALS: BP 130/81; PULSE 96; TEMP 98.1
--- NOTE | 2019-01-15 08:24 | Discharge Summary ---
Date of Service January 23, 2019 Admission HPI Per Admitting Provider Deena Shelton is a 23-year-old female admitted medically with spontaneous onset of labor at 36-weeks gestation. Pt delivered on 01/11/19 via section. Pt had requested psychiatric consultation given that her psychotropic medications had been discontinued during her . Pt has a history of bipolar disorder, PTSD, and cannabis abuse. She follows with Dr. Berg as an outpatient and verbalizes desire to return to pre- medications. Pt reports feeling more "emotional" over the course of her and has been interested in re-starting medications when she was able. Pt verifies that she is planning to bottle fed exclusively. Pt had reported being off medications for "10 months" and states she has noticed episodes of increased sadness and tearfulness. She reported feeling "more manic" over the summer. Pt denies any acute psychiatric concerns and states she wishes to resume medications to avoid worsening of mood. Pt denies thoughts to harm herself or her baby. Reviewed previous medications regimen along with previous response to quetiapine. Pt reports desire to resume medication regimen from prior to - oxcarbazapine 300mg BID and Vraylar 4.5mg daily. We discussed initiating treatment at lower doses to avoid side effects, especially given recent delivery. Pt denies SI/HI, A/V hallucinations, paranoia, OCD, and appetite concerns. Anxiety is elevated due to delivering before her scheduled on 01/28/19. Discharge Data Consultations 01/11/19 01:29 Consult Anesthesiology Stat 01/12/19 07:33 Consult Psychiatry Routine Procedures Performed Operation Date: 01/11/19 01:50 Actual Procedures p Section in LD Live male @ 0226 (Bilateral) - Skyla Blanco DO
--- NOTE | 2019-01-22 17:41 | Discharge Summary ---
Date of Service January 22, 2019 Admission HPI Per Admitting Provider Deena Shelton is a 23-year-old female admitted medically with spontaneous onset of labor at 36-weeks gestation. Pt delivered on 01/11/19 via section. Pt had requested psychiatric consultation given that her psychotropic medications had been discontinued during her . Pt has a history of bipolar disorder, PTSD, and cannabis abuse. She follows with Dr. Berg as an outpatient and verbalizes desire to return to pre- medications. Pt reports feeling more "emotional" over the course of her and has been interested in re-starting medications when she was able. Pt verifies that she is planning to bottle fed exclusively. Pt had reported being off medications for "10 months" and states she has noticed episodes of increased sadness and tearfulness. She reported feeling "more manic" over the summer. Pt denies any acute psychiatric concerns and states she wishes to resume medications to avoid worsening of mood. Pt denies thoughts to harm herself or her baby. Reviewed previous medications regimen along with previous response to quetiapine. Pt reports desire to resume medication regimen from prior to - oxcarbazapine 300mg BID and Vraylar 4.5mg daily. We discussed initiating treatment at lower doses to avoid side effects, especially given recent delivery. Pt denies SI/HI, A/V hallucinations, paranoia, OCD, and appetite concerns. Anxiety is elevated due to delivering before her scheduled on 01/28/19. Discharge Data Consultations 01/11/19 01:29 Consult Anesthesiology Stat 01/12/19 07:33 Consult Psychiatry Routine Procedures Performed RLTCS Operation Date: 01/11/19 01:50 Actual Procedures p Section in LD Live male @ 0226 (Bilateral) - Skyla Blanco DO Hospital Course (1) Spontaneous onset of labor: 23yo @ 36 4/ in spontaneous labor, history of x 1, desire for repeat. RLTCS performed. DC home POD#3. Please see DC instructions given to patient. Followup in office 6w.
== END 2019-01-14 12:45 | disposition home or self-care (01) | DRG 788 ==
LOC: OPB 01:20 → 4S1 01:22 → 4S2 07:10

== ENCOUNTER 2021-08-26 10:45 | Observation (INO) ==
[2021-08-26] MEDS ORDERED: SODIUM CHLORIDE 0.9% 500 ML IV STA (11:19)
[2021-08-26] MEDS ORDERED: ONDANSETRON INJ 2 MG/ML 2 ML VIAL IV STA (11:19)
[2021-08-26 11:28] LABS: Basophils # (auto) 0.02 K/uL (0-0.2); Basophils % (auto) 0.1 %; Eosinophils # (auto) 0.07 K/uL (0-0.5); Eosinophils % (auto) 0.4 %; Hematocrit (blood only) 38.9 % (37-47); Hemoglobin 12.5 g/dL (12.0-16.0); Immature Granulocytes # (auto) 0.06 K/uL (0.00-0.02); Immature Granulocytes % (auto) 0.3 %; Lymphocytes # (auto) 1.34 K/uL (1.2-3.4); Lymphocytes % (auto) 6.8 %; Mean Corpuscular Hemoglobin 27.9 pg (25-34); Mean Corpuscular Hgb Conc 32.1 g/dL (32-36); Mean Corpuscular Volume 86.8 fL (80-100); Mean Platelet Volume 13.8 fL (7.4-10.4); Monocytes # (auto) 0.96 K/uL (0.11-0.59); Monocytes % (auto) 4.9 %; Neutrophils # (auto) 17.18 K/uL (1.4-6.5); Neutrophils % (auto) 87.5 %; Platelet Count 216 K/uL (130-400); RDW Coefficient of Variation 13.5 % (11.5-14.5); Red Blood Count 4.48 M/uL (4.2-5.4); White Blood Count 19.63 K/uL (4.8-10.8)
[2021-08-26 11:35] LABS: BUN Creatinine Ratio 8.2 (10-20); Calcium 9.6 mg/dl (8.5-10.1); Creatinine Clr Calc Pharmacy 49.8 ml/min; Est GFR (African American) 48.1 ml/min; Est GFR (Non-African American) 41.5 ml/min; Potassium 3.6 mmol/L (3.5-5.1)
[2021-08-26 11:38] LABS: Albumin Globulin Ratio 0.7 (0.9-2); Bilirubin,Total 0.6 mg/dl (0.2-1); Globulin 4.3 gm/dl (2.5-4.0); Total Protein 7.3 gm/dl (6.4-8.2)
[2021-08-26] MEDS ORDERED: PROCHLORPERAZINE 2 ML IV ONE (11:46)
[2021-08-26] MEDS ORDERED: diphenhydrAMINE 50 MG/ML VIAL IV STA (11:46)
[2021-08-26] MEDS ORDERED: KETOROLAC TROMETHAMINE 15 MG/ML VIAL IV ONE ×2 (11:46→12:42)
--- NOTE | 2021-08-26 11:55 | Emergency Department Note ---
Impression & Plan Intractable nausea and vomiting, Urinary tract infection, Left flank pain, Status post laser lithotripsy of ureteral calculus, History of ureter stent ED Provider Note CHIEF COMPLAINT: Vomiting HISTORY OF PRESENT ILLNESS: Deena Shelton is a 25 year old female who recently underwent a lithotripsy procedure with basket extraction and left stent placement with Dr. Wilhelm of Urology on 08/24/21 for removal of a 1.1 cm calculus. Since the procedure, the patient has had intractable nausea and vomiting. She has subsequently not been able to keep any food or liquids down, including any of the medications that she has been prescribed. The patient states that when she tries to take a pill even with a small sip of water she immediately vomits it back up. As she has not been able to take any of her medications, she has had worsening pain to her left flank radiating around to her left lower abdominal quadrant, which she currently rates as a 10/10. She also notes chills/sweats but she has not taken her temperature. The patient states that she has only been urinating a little bit as a time as she states that she hasn't been able to keep fluids down and she now feels dehydrated. She otherwise denies dysuria or increased urgency/frequency of urination. The patient also denies sore throat, cough, shortness of breath, chest pain, diarrhea or other acute symptoms. The patient did call her Urologist today regarding her symptoms but was referred to the ED for further evaluation. REVIEW OF SYSTEMS: 10 systems were reviewed and were negative unless otherwise stated in HPI as above PHYSICAL EXAM: VITALS: Vitals are noted on the nurse's note and reviewed by myself. Vital signs stable. General: Resting in bed, appears uncomfortable Resp: Good inspiratory effort on room air, lung sounds clear bilaterally CV: Regular rate and rhythm, peripheral pulses palpated Back: Tender to palpation over the left flank, no midline tenderness to the thoracic or lumbar spine Abd: Soft, tender to palpation over the left mid-lower abdominal quadrants, no rebound, guarding or rigidity, no peritoneal signs Integumentary: No appreciable rash Neuro: Awake, alert, interacting and answering questions appropriately Differential diagnosis includes intractable nausea/vomiting following anesthesia, renal colic, renal calculus, urinary tract infection/pyelonephritis among others were considered. EMERGENCY DEPARTMENT COURSE: Physical exam and history were performed. Nursing notes, EMR, and medication list were personally reviewed. Patient appears to have intractable nausea and vomiting following a lithotripsy procedure with basket extraction of a 1.1 cm calculus with left stent placement with Dr. Wilhelm of Urology on 08/24/2021. IV access was established and she was given 4 mg of Zofran without relief of her symptoms. She was then given a dose of IV Toradol 15 mg x 2, Compazine 10 mg and Benadryl 25 mg which she did state helped to improve her symptoms, although she was still in some discomfort. Labs were obtained and reviewed by me myself as below. Of note, she did have a leukocytosis with a WBC of 19.63 which has increased from 11.3 on 08/14/21. She also appears to have an HANS with an increase in her creatinine to 1.68 from 0.81 also drawn on 08/14/21. BUN not significantly elevated at 14. LFTs nondiagnostic. UA was obtained and showed 3+ blood, 3+ esterase, greater than 30 white blood cells greater than 30 red blood cells with 2030 epithelial cells. Findings concerning for urinary tract infection. KUB was obtained and was reviewed by radiologist and myself as below. This did show a left ureteral stent, slightly lower than previously noted. May be due to projection of the film vs mild stent migration. Advanced practitioner with Dr. Wilhelm of Urology was contacted. She suggested starting the patient on IV Rocephin and contacting medicine for continued ethel gement as an inpatient. Dr. Mcgrath of [facility] Hospitalist group was contacted. He agreed to e valuate the patient for further management. Upon reevaluation, the patient appeared to be resting more comfortably but stated that she is still having pain in her left flank. I discussed the results of the above findings with her as well as my discussion with the urologist and Dr. cMgrath. She was given a dose of Rocephin 2 g to begin treatment for likely urinary tract infection and she understands that the hospitalist group will be in shortly to evaluate her. The patient verbalized understanding and agreement with the treatment plan as above. The chart was completed utilizing [employer] Voice Recognition Software. Grammatical errors, random word insertions, pronoun errors, and incomplete sentences are an occasional consequence of this system due to software limitations, ambient noise, and hardware issues. Any formal questions or concerns about the content, text, or information contained within the body of this dictation should be directly addressed to the provider for clarification. Past Med/Surg History Medical History Depression History of COVID-19 Dx 08/2020 > symptoms at time of: loss of taste or smell (tested d/t exposure) Kidney stones Obesity Ovarian cyst right Surgical History History of section x2 History of wisdom tooth extraction Nausea and vomiting after administration of anesthetic agent SEVERE N/V DURING/AFTER PREVIOUS S/P ureteral stent placement LEFT - 08/24/21 Status post laser lithotripsy of ureteral calculus 1.1cm L-sided stone; 08/24/21 Family History Mother Anemia Kidney stone Father , in his 40s ALS (amyotrophic lateral sclerosis) Social History Smoking Status: Former smoker Cigarettes Per Day: quit 2015; Second Hand Exposure: No; Hx Alcohol Use: No Hx Substance Use: No Preferred Language: Polish Communication Ability: Effective Wire Brush Maker Required: No Beliefs That Will Affect Care: None marital status: Single Current Living Situation: Family Current Living Situation Comment: family current occupational status: unemployed How many Children do You have: 2 How many Children do You have Comment: ages 5 and 2 Feels Safe at Home: Yes Assistive Devices: Glasses Allergies Allergies Allergy/AdvReac Type Severity Reaction Status Date / Time No Known Drug Allergies Allergy Unknown Verified 08/26/21 10:57 Home Meds Home Medications Medication Instructions Recorded Confirmed aripiprazole 400 mg suspension, 400 mg IM MONTHLY 05/14/21 08/26/21 extended rel.intramuscular syringe (Maldonado Escobar) acetaminophen 500 mg capsule 1,000 mg PO Q6H PRN 08/24/21 08/26/21 Previous Rx's Medication Instructions Recorded tamsulosin 0.4 mg capsule (Flomax) 0.4 mg PO QPM #30 cap 08/09/21 docusate sodium 100 mg capsule 100 mg PO BID #20 cap 08/24/21 (Col-Rite) oxybutynin chloride 5 mg 5 mg PO DAILY #20 tab 08/24/21 tablet,extended release 24 hr (Ditropan XL) sulfamethoxazole 800 1 tab PO BID #6 tab 08/24/21 mg-trimethoprim 160 mg tablet (Bactrim DS) Results & Data (ED) Vital Signs Vital Signs - 24 hr 08/26/21 10:49 Temperature 37 C Temperature Source Temporal Artery Scan Pulse Rate 112 H Respiratory Rate 18 Respiratory Effort / Characteristics Non-Labored Respiratory Depth Normal Blood Pressure 127/77 Blood Pressure Mean 93 Pulse Oximetry 95 Oxygen Delivery Method Room Air Sepsis Recent Fever Within 48 Hours No Sepsis New/Unexplained Change in Mental Status No Sepsis Action Taken by Nursing No Action Required Laboratory Data Result diagrams: 08/26/21 11:05 08/26/21 11:05 Lab Results 08/26/21 08/26/21 Range/Units 11:05 11:05 WBC 19.63 H (4.8-10.8) K/uL RBC 4.48 (4.2-5.4) M/uL Hgb 12.5 (12.0-16.0) g/dL Hct 38.9 (37-47) % MCV 86.8 (80-100) fL MCH 27.9 (25-34) pg MCHC 32.1 (32-36) g/dL RDW Std Deviation 43.0 (36.4-46.3) fL RDW Coeff of Alyssa 13.5 (11.5-14.5) % Plt Count 216 (130-400) K/uL MPV 13.8 H (7.4-10.4) fL Immature Gran % (Auto) 0.3 % Neut % (Auto) 87.5 % Lymph % (Auto) 6.8 % [place] % (Auto) 4.9 % Eos % (Auto) 0.4 % Baso % (Auto) 0.1 % Neut # (Auto) 17.18 H (1.4-6.5) K/uL Lymph # (Auto) 1.34 (1.2-3.4) K/uL [place] # (Auto) 0.96 H (0.11-0.59) K/uL Eos # (Auto) 0.07 (0-0.5) K/uL Baso # (Auto) 0.02 (0-0.2) K/uL Immature Gran # (Auto) 0.06 H (0.00-0.02) K/uL Sodium 138 (136-145) mmol/L Potassium 3.6 (3.5-5.1) mmol/L Chloride 106 (98-107) mmol/L Carbon Dioxide 24 (21-32) mmol/L Anion Gap 8.0 (3-11) BUN 14 (7-18) mg/dl Creatinine 1.68 H (0.6-1.2) mg/dl Est Cr Clr Drug Dosing 49.8 ml/min Est GFR ( Amer) 48.1 ml/min Est GFR (Non-Af Amer) 41.5 ml/min BUN/Creatinine Ratio 8.2 L (10-20) Glucose 109 H (70-99) mg/dl Calcium 9.6 (8.5-10.1) mg/dl Total Bilirubin 0.6 (0.2-1) mg/dl AST 14 L (15-37) U/L ALT 24 (12-78) U/L Alkaline Phosphatase 102 (45-117) U/L Total Protein 7.3 (6.4-8.2) gm/dl Albumin 3.0 L (3.4-5.0) gm/dl Globulin 4.3 H (2.5-4.0) gm/dl Albumin/Globulin Ratio 0.7 L (0.9-2) Lipase 65 L (73-393) U/L Administered Medications Discontinued Medications Diphenhydramine HCl (Diphenhydramine 50 Mg/Ml Vial) 25 mg IV NOW STA Stop: 08/26/21 11:47 Last Admin: 08/26/21 12:15 Dose: 25 mg Documented by: [id number] Hydromorphone HCl (Hydromorphone Inj 0.5 Mg/0.5 Ml Syr) Confirm Administered Dose 0.5 mg .ROUTE .STK-MED ONE Stop: 08/26/21 19:24 Last Admin: 08/26/21 19:26 Dose: 0.25 mg Documented by: [id number] Sodium Chloride (Nss) 500 mls @ 999 mls/hr IV .Q31M STA Stop: 08/26/21 11:49 Last Infusion: 08/26/21 13:01 Dose: 0 mls/hr Documented by: [id number] Admin: 08/26/21 11:24 Dose: 999 mls/hr Documented by: [id number] Prochlorperazine (Compazine) 2 mls @ 1 mls/min IV ONE ONE Stop: 08/26/21 11:47 Last Admin: 08/26/21 12:15 Dose: 1 mls/min Documented by: [id number] Ceftriaxone Sodium (Rocephin) 2,000 mg in 70 mls @ 140 mls/hr IV NOW STA Stop: 08/26/21 13:22 Last Infusion: 08/26/21 13:44 Dose: 0 mls/hr Documented by: [id number] Admin: 08/26/21 13:13 Dose: 140 mls/hr Documented by: [id number] Ketorolac Tromethamine (Ketorolac Tromethamine 15 Mg/Ml Vial) 15 mg IV NOW ONE Stop: 08/26/21 11:47 Last Admin: 08/26/21 12:15 Dose: 15 mg Documented by: [id number] Ketorolac Tromethamine (Ketorolac Tromethamine 15 Mg/Ml Vial) 15 mg IV NOW ONE Stop: 08/26/21 12:43 Last Admin: 08/26/21 12:57 Dose: 15 mg Documented by: [id number] Ondansetron HCl (Ondansetron Inj 2 Mg/Ml 2 Ml Vial) 4 mg IV NOW STA Stop: 08/26/21 11:20 Last Admin: 08/26/21 11:24 Dose: 4 mg Documented by: [id number] Ondansetron HCl (Ondansetron Inj 2 Mg/Ml 2 Ml Vial) Confirm Administered Dose 4 mg .ROUTE .STK-MED ONE Stop: 08/26/21 19:24 Last Admin: 08/26/21 19:26 Dose: 4 mg Documented by: [id number] Discharge Plan Visit Data Chief Complaint: Vomiting Stated Complaint: STENT PLACED FOR KIDNEY STONES,ALOT OF PAIN,VOMITI ED Provider: Jitendra Perez ED Midlevel Provider: Michell Collins Discharge Problem: Intractable nausea and vomiting, Urinary tract infection, Left flank pain, Status post laser lithotripsy of ureteral calculus, History of ureter stent Patient Disposition: Admitted As Inpatient Discharge Instructions Interventions: ED Discharge Assessment Last Done: 08/26/21 18:35
[2021-08-26] MEDS ORDERED: cefTRIAXone SODIUM 2,000 MG/70 ML BAG IV STA (12:53)
--- NOTE | 2021-08-26 13:39 | History & Physical Report ---
Date of Service August 26, 2021 Assessment & Plan (1) Acute kidney injury: Plan: Baseline Cr 0.8 to 1. Cr today 1.6. Suspect pre-renal from poor oral intake, frequent vomiting, etc. Stent is in good position per urology thus obstructive element is not present. Continue IVF, treat the vomiting, BMP in am. (2) UTI (urinary tract infection): Plan: Subjective fevers, chills, and u/a findings all concerning for UTI. Start rocephin 2gm IV daily. Follow urine culture. If she indeed has UTI this would be considered a complicated UTI given her stent. (3) Pyelonephritis: Plan: Possible, given her severe left flank pain & tenderness along with u/a findings. As above in #2. (4) Pain due to ureteral stent: Plan: She likely has an element of stent pain in addition to pain from UTI. Pain meds - tylenol 1gm TID, oxycodone prn, and if pain persists then dilaudid 0.25mg q4h prn. For dysuria - pyridium 100mg TID. Bladder pain - ditropan BID prn. Stent pain - flomax 0.4mg daily. No plans for stent retrieval or other urological procedures during this stay per [facility]. (5) Left nephrolithiasis: Plan: s/p laser litho with L stent placement on 08/24. Urology consult appreciated. (6) Nausea and vomiting: Plan: Multifactorial - on 08/24 may have been related to anesthesia. Now N/V may be secondary to UTI/?pyelo, pain meds, constipation, etc. Treat all etiologies. Anti-emetics. IV Pepcid bid. NO evidence of ileus or obstruction on KUB x-ray today. (7) Constipation: Plan: Moderate on KUB. Start miralax BID. Senna daily. (8) Depression: Plan: On IM abilify. (9) DVT prophylaxis: Plan: Defer on chemical means at this time in the event she needed an urgent urological procedure. (10) Morbid obesity with BMI of 40.0-44.9, adult: Plan: BMI 40 Plan: Check urine HCG. History of Present Illness Chief Complaint: persistent nausea/emesis, L flank pain Primary Care Provider: NO PCP Pleasant 25yo female s/p cystoscopy, laser lithotripsy of 1.1cm left-sided kidney stone, basket extraction, and ureteral stent placement by Dr Wilhelm - [facility] - on 08/24/21 presents with persistent nausea, emesis, inability to eat/drink, bladder spasm pain, left flank pain, and dysuria. The nausea/emesis started while she was driving home in the car from her procedure on Monday. The other symptoms began that night as well. She has had subjective fever with hot/cold chills since 08/24/21 as well. The left flank pain - which radiates to the left abdomen and bladder region - has been relatively constant. She has been unable to keep any antibiotics, pain meds, flomax, or ditropan down at home. She was able to keep some tylenol down since Monday. In the ER she was given anti-emetics, benadryl IV, and toradol with relief of vomiting and her pain. Allergies Allergy/AdvReac Type Severity Reaction Status Date / Time No Known Drug Allergies Allergy Unknown Verified 08/26/21 10:57 Home Medications Medication Instructions Recorded Confirmed Type aripiprazole 400 mg suspension, 400 mg IM MONTHLY 05/14/21 08/26/21 History extended rel.intramuscular syringe (Maldonado Escobar) tamsulosin 0.4 mg capsule (Flomax) 0.4 mg PO QPM #30 cap 08/09/21 08/26/21 Rx acetaminophen 500 mg capsule 1,000 mg PO Q6H PRN 08/24/21 08/26/21 History docusate sodium 100 mg capsule 100 mg PO BID #20 cap 08/24/21 08/26/21 Rx (Col-Rite) oxybutynin chloride 5 mg 5 mg PO DAILY #20 tab 08/24/21 08/26/21 Rx tablet,extended release 24 hr (Ditropan XL) sulfamethoxazole 800 1 tab PO BID #6 tab 08/24/21 08/26/21 Rx mg-trimethoprim 160 mg tablet (Bactrim DS) Past Med/Surg History Medical History Depression History of COVID-19 Dx 08/2020 > symptoms at time of: loss of taste or smell (tested d/t exposure) Kidney stones Obesity Ovarian cyst right Surgical History History of section x2 History of wisdom tooth extraction Nausea and vomiting after administration of anesthetic agent SEVERE N/V DURING/AFTER PREVIOUS S/P ureteral stent placement LEFT - 08/24/21 Status post laser lithotripsy of ureteral calculus 1.1cm L-sided stone; 08/24/21 Family History Mother Anemia Kidney stone Father , in his 40s ALS (amyotrophic lateral sclerosis) Social History Smoking Status: Former smoker Cigarettes Per Day: quit 2015; Second Hand Exposure: No; Hx Alcohol Use: No Hx Substance Use: No Preferred Language: Telugu Communication Ability: Effective School Nurse Required: No Beliefs That Will Affect Care: None marital status: Single Current Living Situation: Family Current Living Situation Comment: family current occupational status: unemployed How many Children do You have: 2 How many Children do You have Comment: ages 5 and 2 Feels Safe at Home: Yes Assistive Devices: Glasses Review of Systems Review of Systems: Gen - subjective fever, chills, sweats, poor appetite Eyes - no vision loss HENT - no ear pain, sore throat, loss of taste/smell Neck - no pain CV - no chest pain Pulm - no cough, unable to take deep breaths because of L flank pain GI - N/V/L flank pain w/ abd pain; +flatus, but no stool in 3-4 days - hematuria, dysuria, bladder spasm pain Musculo - back pain, fleeting shoulder pain yesterday - now gone Skin - no rash Lymph - no nodes anywhere Endo - denies diabetes Heme - easy bruising Neuro - no headache Physical Exam Physical Exam: Gen - uncomfortable appearing, dehydrated, obese Eyes - PERRL HENT - MM dry, nose clear, throat clear Neck - no JVD, no lymph nodes Heart - RRR, s1 s2, no murmur Lungs - CTA b/l, mildly decreased BS bases Back - very tender over left flank to palpation Abd - soft, tender LUQ/LLQ, ND, BS+, no HSM Ext - no edema, pulses 2+ b/l Neuro - strength 5/5 x 4 exts; DTRs 2+ b/l Skin - no generalized rash Lymph - no cervical lymph nodes Results & Data Results & Data ([facility]) Vital Signs (Past 12 Hours) Vital Signs Temp Pulse Pulse Resp BP BP Pulse Ox 08/26/21 13:30 95 H 20 112/64 97 08/26/21 12:46 94 H 18 138/84 98 08/26/21 10:49 37 C 112 H 18 127/77 95 Laboratory Results Laboratory Results - last 24 hr 08/26/21 08/26/21 08/26/21 11:05 11:05 13:15 WBC 19.63 H RBC 4.48 Hgb 12.5 Hct 38.9 MCV 86.8 MCH 27.9 MCHC 32.1 RDW Std Deviation 43.0 RDW Coeff of Alyssa 13.5 Plt Count 216 MPV 13.8 H Immature Gran % (Auto) 0.3 Neut % (Auto) 87.5 Lymph % (Auto) 6.8 [place] % (Auto) 4.9 Eos % (Auto) 0.4 Baso % (Auto) 0.1 Neut # (Auto) 17.18 H Lymph # (Auto) 1.34 [place] # (Auto) 0.96 H Eos # (Auto) 0.07 Baso # (Auto) 0.02 Immature Gran # (Auto) 0.06 H Sodium 138 Potassium 3.6 Chloride 106 Carbon Dioxide 24 Anion Gap 8.0 BUN 14 Creatinine 1.68 H Est Cr Clr Drug Dosing 49.8 Est GFR ( Amer) 48.1 Est GFR (Non-Af Amer) 41.5 BUN/Creatinine Ratio 8.2 L Glucose 109 H Calcium 9.6 Total Bilirubin 0.6 AST 14 L ALT 24 Alkaline Phosphatase 102 Total Protein 7.3 Albumin 3.0 L Globulin 4.3 H Albumin/Globulin Ratio 0.7 L Lipase 65 L Urine Color Straw Urine Appearance Cloudy A Urine pH 7.0 Ur Specific [place] 1.005 Urine Protein 1+ H Urine Glucose (UA) Negative Urine Ketones Trace H Urine Blood 3+ H Urine Nitrite Negative Urine Bilirubin Negative Urine Urobilinogen Negative Ur Leukocyte Esterase 3+ H Urine WBC (Auto) >30 H Urine RBC (Auto) >30 H U Hyaline Cast (Auto) 5-10 H U Epithel Cells (Auto) 20-30 H Urine Bacteria (Auto) Negative Urine Yeast Not Reportable COVID-19 Eval Order SARS-CoV-2 (PCR) 08/26/21 08/26/21 13:40 13:40 WBC RBC Hgb Hct MCV MCH MCHC RDW Std Deviation RDW Coeff of Alyssa Plt Count MPV Immature Gran % (Auto) Neut % (Auto) Lymph % (Auto) [place] % (Auto) Eos % (Auto) Baso % (Auto) Neut # (Auto) Lymph # (Auto) [place] # (Auto) Eos # (Auto) Baso # (Auto) Immature Gran # (Auto) Sodium Potassium Chloride Carbon Dioxide Anion Gap BUN Creatinine Est Cr Clr Drug Dosing Est GFR ( Amer) Est GFR (Non-Af Amer) BUN/Creatinine Ratio Glucose Calcium Total Bilirubin AST ALT Alkaline Phosphatase Total Protein Albumin Globulin Albumin/Globulin Ratio Lipase Urine Color Urine Appearance Urine pH Ur Specific [place] Urine Protein Urine Glucose (UA) Urine Ketones Urine Blood Urine Nitrite Urine Bilirubin Urine Urobilinogen Ur Leukocyte Esterase Urine WBC (Auto) Urine RBC (Auto) U Hyaline Cast (Auto) U Epithel Cells (Auto) Urine Bacteria (Auto) Urine Yeast COVID-19 Eval Order Covid19 at [facility] SARS-CoV-2 (PCR) Pending Diagnostic Findings KUB X-Ray 08/26/21 12:53 KUB HISTORY: Follow up study in a patient with a left ureteral stent COMPARISON: KUB 09/23/2021, CT abdomen and pelvis 08/14/2021. FINDINGS: Nonobstructive bowel gas pattern. Mild fecal retention of the right hemicolon. A left ureteral stent is present. The proximal portion is present level of L2-L3 which previously present at the level of L1-L2. The renal shadows are partially obscured by bowel gas. No definite renal or ureteral calculi are identified. No pneumoperitoneum or pneumatosis. No fracture. IMPRESSION: 1. A left ureteral stent is in place with the proximal pigtail portion at the level of L2-L3, previously at L1-L2. This may be secondary to projection of the film versus mild stent migration. 2. No renal or ureteral calculi identified. ACT 112: Negative or not required by law. The above report was generated using voice recognition software. It may contain grammatical, syntax or spelling errors. Electronically signed by: Yaniv Venegas M.D. 08/26/2021 2:02 PM PG Care Time/CCT Total # of Minutes Spent Total Time Spent with Patient: Total time spent is greater than 50% in coordination of care (as documented) at patient's floor/unit and/or counseling patient: Coding Level of Care Code INT OBSERVATION CARE 50M LVL 2 Diagnoses Acute kidney injury N17.9 UTI (urinary tract infection) N39.0 Pyelonephritis N12 Pain due to ureteral stent T83.84XA Left nephrolithiasis N20.0 Nausea and vomiting R11.2 Constipation K59.00 DVT prophylaxis Z29.9 Depression F32.A Morbid obesity with BMI of 40.0-44.9, adult E66.01; Z68.41
--- NOTE | 2021-08-26 14:03 | XRay Report ---
KUB HISTORY: Follow up study in a patient with a left ureteral stent COMPARISON: KUB 09/23/2021, CT abdomen and pelvis 08/14/2021. FINDINGS: Nonobstructive bowel gas pattern. Mild fecal retention of the right hemicolon. A left uret eral stent is present. The proximal portion is present level of L2-L3 which previously present at the level of L1-L2. The renal shadows are partially obscured by bowel gas. No definite renal or ureteral calculi are identified. No pneumoperitoneum or pneumatosis. No fracture. IMPRESSION: 1. A left ureteral stent is in place with the proximal pigtail portion at the level of L2-L3, previou sly at L1-L2. This may be secondary to projection of the film versus mild stent migration. 2. No renal or ureteral calculi identified. ACT 112: Negative or not required by law. The above report was generated using voice recognition software. It may contain grammatical, syntax o r spelling errors. Electronically signed by: Yaniv Venegas M.D. 08/26/2021 2:02 PM
[2021-08-26 14:09] LABS: Appearance Urine Cloudy (Clear); Bacteria Urine Automated Negative (Negative); Bilirubin Urine Negative (Negative); Blood Urine 3+ (Negative); Epithelial Cell Urine Auto 20-30 /lpf (0-5); Glucose Urine UA Negative (Negative); Ketones Urine Trace (Negative); Leukocyte Esterase Urine 3+ (Negative); Nitrite Urine Negative (Negative); Protein Urine 1+ (Negative); Specific Gravity Urine 1.005 (1.000-1.030); Urobilinogen Urine Negative (Negative); WBC Urine Automated >30 /hpf (0-5)
[2021-08-26 14:20] LABS: Color Urine Straw
[2021-08-26 14:32] LABS: RBC Urine Automated >30 /hpf (0-4)
--- NOTE | 2021-08-26 15:52 | Urology Consultation ---
Date of Consultation August 26, 2021 Assessment & Plan (1) Left flank pain: (2) Nausea and vomiting: (3) S/P ureteral stent placement: 25 year-old female patient, s/p left URS-LL with placement of left ureteral stent on 08/24/[address] Wilhelm, admitted with intractable left flank pain with associated nausea/vomiting. -Plan of care reviewed with Dr. Serrato, on-call urologist. -Patient afebrile. -Labs reviewed - white count elevated at 19.63, hemoglobin 12.5, creatinine 1.68. -Etiology of white count and creatinine elevation possibly secondary to recent procedure versus HANS due to decreased oral intake, however cannot exclude infection as cause. -Urine culture pending, await final. -KUB reviewed - left ureteral stent in appropriate position. -No acute intervention indicated at this time, okay to have diet. -Continue with supportive care, pain control, antibiotic therapy, close monitoring. -Continue with outpatient plan for repeat imaging as scheduled to evaluate any remaining stone burden prior to stent removal. -Will continue to follow clinical progress closely while inpatient. Supervising Physician Co-Signing Physician Notes I agree with the above documentation. Her ureteral stent appears to be in good position, and I suspect her pain and nausea are related to normal stent pain. Would be reasonable to address this with Zofran we will giving her some IV fluid resuscitation. I suspect her HANS is a factor of poor p.o. tolerance over the last couple days. As stated above, her leukocytosis is potentially related to the recent procedure and current pain, but infection cannot be ruled out at this point, and treatment with antibiotics is reasonable. History of Present Illness Reason for Consultation: recent L ureteral stent, laser litho, UTI/pyelo Requesting Physician: Dr. Mcgrath History of Present Illness 25 year-old female patient, with past medical history significant for kidney stones, depression, history of COVID-19, and obesity, presented to the emergency room today with complaints of intractable nausea/vomiting, severe left flank pain, and subjective fever/chills. Patient recently underwent surgical intervention for a 1.1 cm left renal pelvis calculus on 08/[address] Wilhelm. Reports ever since procedure, she has not been able to keep any liquid or food down due to nausea/vomiting. Patient admitted to medicine service for further evaluation and treatment. Urology consulted for UTI, question pyelonephritis post URS-LL. As above, patient known to [facility]. Recently underwent cystoscopy, left ureteronephroscopy, retrograde pyelogram, laser lithotripsy, and left ureteral stent insertion by Dr. Wilhelm on 08/24/21. She was discharged with three days of Bactrim which she has been unable to take due to n/v. Follow-up plan was to repeat CT in 7-10 days to evaluate any remaining stone burden and determine if stent removal was appropriate thereafter versus repeat procedure. Chart review: Afebrile. Wbc 19.63 Hgb 12.5 Creatinine 1.68 (previously 0.81) Urinalysis +3 leukocytes, >30 wbc, >30 rbc, 20-30 epi, negative bacteria, negative nitrates. Urine culture pending. Patient ordered IV Ceftriaxone. Imaging - KUB - IMPRESSION: 1. A left ureteral stent is in place with the proximal pigtail portion at the level of L2-L3, previously at L1-L2. This may be secondary to projection of the film versus mild stent migration. 2. No renal or ureteral calculi identified. Patient seen and examined at bedside. Does appear to be in mild discomfort. Reports continued pain to left flank area, radiating to abdomen. Does report on- going nausea and vomiting. Has been dry-heaving. Reports subjective fevers and chills. She did not take her temperature at home. Denies dysuria but notes hematuria. Does have urinary frequency/urgency. Denies chest pain or shortness of breath. Requesting something to eat to see if this improves her nausea. Overall, she states her symptoms have improved slightly since initial ER presentation. Denies additional urologic concerns today. Allergies Allergy/AdvReac Type Severity Reaction Status Date / Time No Known Drug Allergies Allergy Unknown Verified 08/26/21 10:57 Home Medications Medication Instructions Recorded Confirmed Type aripiprazole 400 mg suspension, 400 mg IM MONTHLY 05/14/21 08/26/21 History extended rel.intramuscular syringe (Maldonado Escobar) tamsulosin 0.4 mg capsule (Flomax) 0.4 mg PO QPM #30 cap 08/09/21 08/26/21 Rx acetaminophen 500 mg capsule 1,000 mg PO Q6H PRN 08/24/21 08/26/21 History docusate sodium 100 mg capsule 100 mg PO BID #20 cap 08/24/21 08/26/21 Rx (Col-Rite) oxybutynin chloride 5 mg 5 mg PO DAILY #20 tab 08/24/21 08/26/21 Rx tablet,extended release 24 hr (Ditropan XL) sulfamethoxazole 800 1 tab PO BID #6 tab 08/24/21 08/26/21 Rx mg-trimethoprim 160 mg tablet (Bactrim DS) Patient History Medical History (Updated 08/26/21 @ 15:57 by SARAHY Bowens) Depression History of COVID-19 Dx 08/2020 > symptoms at time of: loss of taste or smell (tested d/t exposure) Kidney stones Obesity Surgical History (Updated 08/26/21 @ 15:57 by SARAHY Bowens) History of section x2 History of wisdom tooth extraction Nausea and vomiting after administration of anesthetic agent SEVERE N/V DURING/AFTER PREVIOUS S/P ureteral stent placement LEFT - 08/24/21 Status post laser lithotripsy of ureteral calculus 1.1cm L-sided stone; 08/24/21 Family History Mother Anemia Kidney stone Father , in his 40s ALS (amyotrophic lateral sclerosis) Social History Smoking Status: Never smoker Second Hand Exposure: No; Hx Alcohol Use: No Hx Substance Use: No Preferred Language: Bengali Communication Ability: Effective 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 Director Required: No Beliefs That Will Affect Care: None marital status: Single Current Living Situation: Significant Other Current Living Situation Comment: lives in [place] current occupational status: unemployed How many Children do You have: 2 How many Children do You have Comment: ages 5 and 2 Feels Safe at Home: Yes Assistive Devices: Contacts and Glasses Review of Systems Constitutional: as per Subjective / HPI, + fever and + chills Eyes: no problem reported Ear, Nose, Mouth, Throat: no problem reported Respiratory: no cough and no dyspnea Cardiovascular: no chest pain and no edema Gastrointestinal: as per Subjective / HPI Genitourinary: as per Subjective / HPI Musculoskeletal: as per Subjective / HPI Neurologic: no dizziness Endocrine: no fatigue Hematologic / Lymphatic: no easy bleeding and no easy bruising Physical Exam Constitutional: well developed, well nourished and cooperative; not ill appearing ENMT: Ears: no external ear abnormality Nose: no external nose abnormality Neck: normal visual inspection and trachea midline Respiratory: normal respiratory effort and able to speak in complete sentences; no respiratory distress and no audible wheezes Cardiovascular: Extremities: no calf tenderness and no edema Gastrointestinal (Abdomen): Inspection/Auscultation: abdomen normal to inspection; abdomen not distended Percussion/Palpation: abdomen soft; abdomen nontender and no guarding Musculoskeletal: Moves all extremities without difficulty. Skin: No visible rashes, lesions, or wounds noted. Neurologic: moves all extremities and awake Psychiatric: Orientation: alert, oriented x 3 and cooperative Affect: euthymic affect Genitourinary: + CVA tenderness (left) Results & Data ([facility]) Vital Signs (Past 12 Hours) Vital Signs Temp Pulse Pulse Resp BP BP Pulse Ox 08/26/21 15:00 94 H 18 120/76 99 08/26/21 13:30 95 H 20 112/64 97 08/26/21 12:46 94 H 18 138/84 98 08/26/21 10:49 37 C 112 H 18 127/77 95 PG Care Time/CCT Total # of Minutes Spent Total Time Spent with Patient: Total time spent is greater than 50% in coordination of care (as documented) at patient's floor/unit and/or counseling patient: Coding Level of Care Code 75708 Inpt Consult Level 4 Diagnoses Left flank pain R10.9 Nausea and vomiting R11.2 S/P ureteral stent placement Z96.0
[2021-08-26] MEDS ORDERED: ONDANSETRON INJ 2 MG/ML 2 ML VIAL ONE (19:23)
[2021-08-26] MEDS ORDERED: HYDROmorphone INJ 0.5 MG/0.5 ML SYR ONE (19:23)
[2021-08-26] MEDS: NSS + 20MEQ KCL 20 MEQ/1,000 ML BAG IV SCH (21:11)
[2021-08-26] MEDS: FAMOTIDINE 20 MG in SYRINGE 3 ML IV SCH (21:13)
[2021-08-26] MEDS: PHENAZOPYRIDINE HCL 100 MG TAB PO SCH ×2 (21:14)
[2021-08-26] MEDS: TAMSULOSIN HCL 0.4 MG CAP PO SCH (21:15)
[2021-08-26] MEDS: ACETAMINOPHEN 500 MG TAB PO SCH (21:15)
[2021-08-26] MEDS: POLYETHYLENE (MIRALAX) 17 GM PACK PO SCH (21:16)
[2021-08-26] MEDS: OXYBUTYNIN CHLORIDE 5 MG TAB PO PRN (21:17)
[2021-08-27] MEDS: HYDROmorphone INJ 0.5 MG/0.5 ML SYR IV PRN ×3 (00:40→15:28)
[2021-08-27] MEDS: oxyCODONE HCL IR 5 MG TAB (IMMEDIATE RELEASE) PO PRN ×5 (02:15→20:58)
[2021-08-27 04:19] LABS: Pregnancy Test, Urine Negative (Negative)
[2021-08-27] MEDS: NSS + 20MEQ KCL 20 MEQ/1,000 ML BAG IV SCH ×3 (05:25→21:00)
[2021-08-27] MEDS: ONDANSETRON INJ 2 MG/ML 2 ML VIAL IV PRN ×3 (05:30→19:14)
[2021-08-27] MEDS: FAMOTIDINE 20 MG in SYRINGE 3 ML IV SCH ×2 (05:30→17:43)
[2021-08-27 07:35] LABS: BUN Creatinine Ratio 10.5 (10-20); Calcium 8.4 mg/dl (8.5-10.1); Creatinine Clr Calc Pharmacy 98.4 ml/min; Est GFR (African American) 109.6 ml/min; Est GFR (Non-African American) 94.6 ml/min; Potassium 3.7 mmol/L (3.5-5.1)
[2021-08-27] MEDS: PHENAZOPYRIDINE HCL 100 MG TAB PO SCH ×3 (08:08→20:59)
[2021-08-27] MEDS: ACETAMINOPHEN 500 MG TAB PO SCH ×3 (08:08→20:59)
[2021-08-27] MEDS: OXYBUTYNIN CHLORIDE 5 MG TAB PO PRN (08:09)
[2021-08-27] MEDS: cefTRIAXone SODIUM 2,000 MG in DEXTROSE 5% 50 ML IV SCH (08:14)
--- NOTE | 2021-08-27 08:30 | Urology Progress Note ---
Date of Service August 27, 2021 Assessment & Plan (1) Left flank pain: (2) Nausea and vomiting: (3) S/P ureteral stent placement: Plan: 25 year-old female patient, s/p left URS-LL with placement of left ureteral stent on 08/24/[address] Wilhelm, admitted with intractable left flank pain with associated nausea/vomiting. -Plan of care reviewed with Dr. Wilhelm. -Patient remains afebrile. -Labs reviewed - white count returned to normal at 7.86 (previously 19.63), hemoglobin 10.6, creatinine returned to baseline at 0.85. -Urine culture pending, await final. -KUB reviewed - left ureteral stent in appropriate position. -No acute intervention indicated at this time. -Continue with supportive care, pain control, antibiotic therapy, close monitoring. -Will add PRN IV Toradol to pain medicine regimen. Continue with Tamsulosin and PRN Oxybutynin. Suspect her discomfort is likely related to ureteral stent. -Continue with outpatient plan for repeat imaging as scheduled to evaluate any remaining stone burden prior to stent removal. -Will continue to follow clinical progress closely while inpatient. Admission and Anticipated Discharge Date Admission Date: August 26, 2021 Supervising Physician Co-Signing Physician Notes Discussed patient with MECHE. Agree with plan. Saw patient personally this afternoon. Still reports some nausea and discomfort but improved since admission. Labs have improved. KUB showed stent in appropriate position. Explained that based on difficulty of procedure, not surprised that she had some associated pain and nausea and vomiting. Continue supportive measures. Once discharged, will get scan next week to determine if stent can be removed or she needs second procedure. I will round on her tomorrow morning. Subjective Patient examined at bedside. She is alert, awake, appears comfortable. Does report continued left flank pain, requiring IV and PO PRN pain medication. Reports hematuria as expected with stent. Denies dysuria. Does note urinary urgency/frequency. Denies nausea or vomiting. Denies fevers but does report intermittent chills. Chart review: Afebrile Wbc 7.86 (previously 19.63) Hgb 10.6 (previously 12.5) Creatinine 0.85 (previously 1.68) Urine culture pending. Patient currently on IV Ceftriaxone. Denies additional urologic concerns today. Review of Systems Constitutional: as per Subjective / HPI and + chills; no fever Gastrointestinal: as per Subjective / HPI; no nausea and no vomiting Genitourinary: as per Subjective / HPI Physical Exam Constitutional: well developed and well nourished; no acute distress and not ill appearing Respiratory: normal respiratory effort and able to speak in complete sentences; no respiratory distress and no audible wheezes Gastrointestinal (Abdomen): Inspection/Auscultation: abdomen normal to inspection; abdomen not distended Percussion/Palpation: + abdomen tender (LLQ) and abdomen soft; no guarding Psychiatric: Orientation: alert, oriented x 3 and cooperative Affect: euthymic affect Genitourinary: + CVA tenderness (left) Results & Data ([facility]) Vital Signs (Past 12 Hours) Vital Signs Temp Pulse Resp BP Pulse Ox 08/27/21 08:00 36.8 C 87 18 111/67 96 08/26/21 23:18 37.1 C 101 H 18 99/66 L 97 PG Care Time/CCT Total # of Minutes Spent Total Time Spent with Patient: Total time spent is greater than 50% in coordination of care (as documented) at patient's floor/unit and/or counseling patient: Coding Level of Care Code 58771 Subseq Hosp Care Lvl 2 Diagnoses Left flank pain R10.9 Nausea and vomiting R11.2 S/P ureteral stent placement Z96.0
[2021-08-27 08:49] LABS: Basophils # (auto) 0.02 K/uL (0-0.2); Basophils % (auto) 0.3 %; Eosinophils # (auto) 0.16 K/uL (0-0.5); Hematocrit (blood only) 32.9 % (37-47); Hemoglobin 10.6 g/dL (12.0-16.0); Immature Granulocytes # (auto) 0.02 K/uL (0.00-0.02); Immature Granulocytes % (auto) 0.3 %; Lymphocytes # (auto) 2.31 K/uL (1.2-3.4); Lymphocytes % (auto) 29.4 %; Mean Corpuscular Hgb Conc 32.2 g/dL (32-36); Mean Corpuscular Volume 86.8 fL (80-100); Mean Platelet Volume 13.7 fL (7.4-10.4); Monocytes # (auto) 0.62 K/uL (0.11-0.59); Monocytes % (auto) 7.9 %; Neutrophils # (auto) 4.73 K/uL (1.4-6.5); Neutrophils % (auto) 60.1 %; Platelet Count 172 K/uL (130-400); RDW Coefficient of Variation 13.5 % (11.5-14.5); RDW Standard Deviation 43.2 fL (36.4-46.3); Red Blood Count 3.79 M/uL (4.2-5.4); White Blood Count 7.86 K/uL (4.8-10.8)
[2021-08-27] MEDS ORDERED: KETOROLAC TROMETHAMINE 15 MG/ML VIAL IV PRN (09:29)
[2021-08-27] MEDS: ADVANCED PROBIOTIC 1250 MG CAPSULE PO SCH (10:08)
[2021-08-27] MEDS: POLYETHYLENE (MIRALAX) 17 GM PACK PO SCH ×3 (10:08→20:59)
[2021-08-27] MEDS: DOCUSATE SODIUM/SENNA 50/8.6MG TAB PO SCH (10:08)
[2021-08-27] MEDS ORDERED: diphenhydrAMINE Capsule 25 MG CAP PO PRN (12:56)
--- NOTE | 2021-08-27 13:00 | Hospitalist Progress Note ---
Date of Service August 27, 2021 Assessment & Plan (1) Acute kidney injury: Plan: Multifactoral - likely prerenal d/t n/v + UTI with pyelo. Responded to IVF resuscitation. Cap fluids this evening, now tolerating PO intake. (2) UTI (urinary tract infection): Plan: Continue empiric Rocephin, await culture data and will tailor abx accordingly. (3) Pyelonephritis: Plan: Possible, given her severe left flank pain & tenderness along with u/a findings. As above in #2. (4) Pain due to ureteral stent: Plan: She likely has an element of stent pain in addition to pain from UTI. Pain meds - Continue tylenol 1gm TID, oxycodone prn, and agree with addition of Toradol. This combination seems to be effectively controlling her pain, will d/c Dilaudid. For dysuria - pyridium 100mg TID. Bladder pain - ditropan BID prn. Stent pain - flomax 0.4mg daily. No plans for stent retrieval or other urological procedures during this stay per [facility]. orange tinged urine normal side effect of Pyridium. This was explained to the patient. (5) Left nephrolithiasis: Plan: s/p laser litho with L stent placement on 08/24. Urology consult appreciated. (6) Nausea and vomiting: Plan: Multifactorial - on 08/24 may have been related to anesthesia. Now N/V may be secondary to UTI/?pyelo, pain meds, constipation, etc. (7) Constipation: Plan: Moderate on KUB. Started on miralax BID and Senna daily. (8) Depression: Plan: On IM abilify. (9) DVT prophylaxis: Plan: No plans for surgical intervention. Initiate Lovenox. (10) Morbid obesity with BMI of 40.0-44.9, adult: Plan: BMI 40 Plan: Urine hcg neg. Admission and Anticipated Discharge Date Admission Date: August 26, 2021 Subjective Pleasant 25yo female s/p cystoscopy, laser lithotripsy of 1.1cm left-sided kidney stone, basket extraction, and ureteral stent placement by Dr Wilhelm - [facility] - on 08/24/21 presented to ED with persistent nausea, emesis, inability to eat/drink, bladder spasm pain, left flank pain, and dysuria and hospitalized for acute complicated UTI with pyelonephritis and HANS in the settin g of recent ureteral stent placement.Patient was started on IVF, empiric Rocephin. She was seen on rounds this morning, she is resting comfortably in bed and offers no new complaints. She does verbalize desire to eat solid food. She voided this AM and noted urine was abnormal color -> orange/red. She denies n/v. L flank pain is still present but is improved from yesterday. Denies cp, dyspnea, f/c, headache. rounded on patient this AM, added PRN Toradol for additional level of pain control. Review of Systems Review of Systems: CONSTITUTIONAL: Denies weight loss/gain, fever and chills, fatigue, malaise, generalized weakness. HEENT: Denies changes in vision and hearing. RESPIRATORY: Denies SOB, cough, wheezing. CV: Denies palpitations, CP, lower extremity edema, orthopnea, PND. GI: +suprapubic abdominal discomfort. Denies nausea, vomiting and diarrhea. : Denies dysuria and urinary frequency, urgency, hesitancy. +abnormal color of urine. +L flank pain. MUSCULOSKELETAL: Denies myalgia and joint pain. SKIN: Denies rash and pruritus. NEUROLOGICAL: Denies headache, syncope, focal weakness, numbness, tingling. PSYCHIATRIC: Denies recent changes in mood. Denies anxiety and depression. Physical Exam Physical Exam: GENERAL: 25 yo obese pleasant WF. NAD. LUNGS: Clear to auscultation bilaterally. No accessory muscle use. No W/R/R. CARDIOVASCULAR: Regular rate and rhythm. No M/G/R. No JVD. ABDOMEN: Soft and non-distended. Bowel sounds normoactive x 4 quad. TTP in suprapubic and LLQ/L flank GENITOURINARY: +L CVA tenderness. Urine orange tinge. EXTREMITIES: No edema. Non-tender. Peripheral pulses +2/4. SKIN: Warm, dry, intact. No rashes or lesions. Results & Data Results & Data ([facility]) Vital Signs (Past 12 Hours) Vital Signs Temp Pulse Resp BP Pulse Ox 08/27/21 11:54 36.8 C 83 20 106/72 98 08/27/21 08:00 36.8 C 87 18 111/67 96 Laboratory Results Laboratory Results - last 24 hr 08/26/21 08/27/21 08/27/21 13:15 06:28 06:28 WBC 7.86 D RBC 3.79 L Hgb 10.6 L Hct 32.9 L MCV 86.8 MCH 28.0 MCHC 32.2 RDW Std Deviation 43.2 RDW Coeff of Alyssa 13.5 Plt Count 172 MPV 13.7 H Immature Gran % (Auto) 0.3 Neut % (Auto) 60.1 Lymph % (Auto) 29.4 Sharp % (Auto) 7.9 Eos % (Auto) 2.0 Baso % (Auto) 0.3 Neut # (Auto) 4.73 Lymph # (Auto) 2.31 Sharp # (Auto) 0.62 H Eos # (Auto) 0.16 Baso # (Auto) 0.02 Immature Gran # (Auto) 0.02 Sodium 141 Potassium 3.7 Chloride 113 H Carbon Dioxide 22 Anion Gap 6.0 BUN 9 D Creatinine 0.85 D Est Cr Clr Drug Dosing 98.4 Est GFR ( Amer) 109.6 Est GFR (Non-Af Amer) 94.6 BUN/Creatinine Ratio 10.5 Glucose 88 Calcium 8.4 L Urine Test Negative Medications Administered Current Medications Acetaminophen (Acetaminophen 500 Mg Tab) 1,000 mg PO TID PURVI Stop: 09/25/21 20:59 Last Admin: 08/27/21 13:17 Dose: 1,000 mg Diphenhydramine HCl (Diphenhydramine Capsule 25 Mg Cap) 25 mg PO Q6H PRN PRN Reason: Itching Stop: 09/26/21 12:55 Hydromorphone HCl (Hydromorphone Inj 0.5 Mg/0.5 Ml Syr) 0.25 mg IV Q4H PRN PRN Reason: Pain Stop: 09/09/21 18:42 Last Admin: 08/27/21 15:28 Dose: 0.25 mg Potassium Chloride/Sodium Chloride (Normal Saline W/20 Meq Kcl) 20 meq in 1,000 mls @ 125 mls/hr IV .Q8H PURVI Stop: 09/25/21 18:42 Last Admin: 08/27/21 13:44 Dose: 125 mls/hr Ceftriaxone Sodium 2,000 mg/ (Dextrose) 70 mls @ 100 mls/hr IV DAILY PURVI; Protocol Stop: 09/06/21 08:59 Last Infusion: 08/27/21 09:12 Dose: Infused Famotidine 20 mg/ Syringe 5 mls @ 2.5 mls/min IV Q12H PURVI Stop: 09/25/21 18:42 Last Admin: 08/27/21 05:30 Dose: 2.5 mls/min Ketorolac Tromethamine (Ketorolac Tromethamine 15 Mg/Ml Vial) 30 mg IV Q8H PRN PRN Reason: Pain Stop: 09/01/21 09:28 Lactobacillus Acidoph/Casei/Rhamnos (Advanced Probiotic 1250 Mg Capsule) 2 cap PO DAILY PURVI Stop: 09/26/21 08:59 Last Admin: 08/27/21 10:08 Dose: Not Given Ondansetron HCl (Ondansetron Inj 2 Mg/Ml 2 Ml Vial) 4 mg IV Q6H PRN PRN Reason: Nausea And Vomiting Stop: 09/25/21 18:42 Last Admin: 08/27/21 12:47 Dose: 4 mg Oxybutynin Chloride (Oxybutynin Chloride 5 Mg Tab) 5 mg PO BID PRN PRN Reason: bladder pain/spasm Stop: 09/25/21 18:42 Last Admin: 08/27/21 08:09 Dose: 5 mg Oxycodone HCl (Oxycodone Hcl Ir 5 Mg Tab (Immediate Release)) 5 mg PO Q4H PRN PRN Reason: Pain Stop: 09/09/21 18:42 Last Admin: 08/27/21 12:46 Dose: 5 mg Phenazopyridine HCl (Phenazopyridine Hcl 100 Mg Tab) 100 mg PO TID PURVI Stop: 09/25/21 18:42 Last Admin: 08/27/21 13:19 Dose: 100 mg Polyethylene Glycol (Polyethylene (Miralax) 17 Gm Pack) 17 gm PO BID PURVI Stop: 09/25/21 20:59 Last Admin: 08/27/21 15:23 Dose: 17 gm Senna/Docusate Sodium (Docusate Sodium/Senna 50/8.6mg Tab) 1 tab PO QAM PURVI Stop: 09/26/21 08:59 Last Admin: 08/27/21 10:08 Dose: Not Given Tamsulosin HCl (Tamsulosin Hcl 0.4 Mg Cap) 0.4 mg PO QPM PURVI Stop: 09/25/21 20:59 Last Admin: 08/26/21 21:15 Dose: 0.4 mg PG Care Time/CCT Total # of Minutes Spent Total Time Spent with Patient: Total time spent is greater than 50% in coordination of care (as documented) at patient's floor/unit and/or counseling patient: Coding Level of Care Code 80182 Subseq Obs Care Lvl 2 Diagnoses Acute kidney injury N17.9 UTI (urinary tract infection) N39.0 Pyelonephritis N12 Pain due to ureteral stent T83.84XA Left nephrolithiasis N20.0 Nausea and vomiting R11.2 Constipation K59.00 Depression F32.A DVT prophylaxis Z29.9 Morbid obesity with BMI of 40.0-44.9, adult E66.01; Z68.41
[2021-08-27] MEDS: KETOROLAC TROMETHAMINE 15 MG/ML VIAL IV PRN (17:39)
[2021-08-27] MEDS: TAMSULOSIN HCL 0.4 MG CAP PO SCH (21:00)
[2021-08-28] MEDS: KETOROLAC TROMETHAMINE 15 MG/ML VIAL IV PRN ×2 (01:41→10:02)
[2021-08-28] MEDS: FAMOTIDINE 20 MG in SYRINGE 3 ML IV SCH (06:12)
[2021-08-28 07:08] LABS: Basophils # (auto) 0.02 K/uL (0-0.2); Basophils % (auto) 0.3 %; Eosinophils # (auto) 0.21 K/uL (0-0.5); Eosinophils % (auto) 2.7 %; Hemoglobin 11.3 g/dL (12.0-16.0); Immature Granulocytes # (auto) 0.01 K/uL (0.00-0.02); Immature Granulocytes % (auto) 0.1 %; Lymphocytes # (auto) 2.98 K/uL (1.2-3.4); Lymphocytes % (auto) 38.8 %; Mean Corpuscular Hemoglobin 27.5 pg (25-34); Mean Corpuscular Hgb Conc 32.3 g/dL (32-36); Mean Corpuscular Volume 85.2 fL (80-100); Mean Platelet Volume 13.1 fL (7.4-10.4); Monocytes % (auto) 5.2 %; Neutrophils # (auto) 4.06 K/uL (1.4-6.5); Neutrophils % (auto) 52.9 %; Platelet Count 231 K/uL (130-400); RDW Coefficient of Variation 13.5 % (11.5-14.5); Red Blood Count 4.11 M/uL (4.2-5.4); White Blood Count 7.68 K/uL (4.8-10.8)
[2021-08-28] MEDS: ONDANSETRON INJ 2 MG/ML 2 ML VIAL IV PRN (07:40)
[2021-08-28] MEDS: oxyCODONE HCL IR 5 MG TAB (IMMEDIATE RELEASE) PO PRN ×2 (07:40→13:21)
[2021-08-28] MEDS: ACETAMINOPHEN 500 MG TAB PO SCH ×2 (07:41→13:18)
[2021-08-28] MEDS: PHENAZOPYRIDINE HCL 100 MG TAB PO SCH ×2 (07:41→13:18)
[2021-08-28 07:46] LABS: BUN Creatinine Ratio 5.8 (10-20); Calcium 9.2 mg/dl (8.5-10.1); Creatinine Clr Calc Pharmacy 96.1 ml/min; Est GFR (African American) 106.6 ml/min; Est GFR (Non-African American) 91.9 ml/min; Potassium 3.9 mmol/L (3.5-5.1)
--- NOTE | 2021-08-28 07:48 | Urology Progress Note ---
Date of Service August 28, 2021 Assessment & Plan (1) S/P ureteral stent placement: (2) Intractable nausea and vomiting: (3) Left flank pain: Plan: 25 year-old female patient, s/p left URS-LL with placement of left ureteral stent on 08/24/[address] Wilhelm, admitted with intractable left flank pain with associated nausea/vomiting. -Patient remains afebrile. -Labs reviewed - white count returned to normal at 7.68 (previously 7.86), hemoglobin 11.3, creatinine returned to baseline at 0.87. -Urine culture pending, await final. -KUB reviewed - left ureteral stent in appropriate position. -No acute intervention indicated at this time. -Continue with supportive care, pain control, antibiotic therapy, close monitoring. Patient reports symptoms are improving -Will add PRN IV Toradol to pain medicine regimen. Continue with Tamsulosin and PRN Oxybutynin. Suspect her discomfort is likely related to ureteral stent. -Continue with outpatient plan for repeat imaging as scheduled to evaluate any remaining stone burden prior to stent removal this upcoming Monday. -Patient stable for discharge from urologic perspective. Recommend sending home with antiemetic at time of discharge. -Will continue to follow clinical progress closely while inpatient. Admission and Anticipated Discharge Date Admission Date: August 26, 2021 Subjective Patient seen on rounds. Still endorses some nausea, but does report that is improving. She feels as if her hydration status is improved. Pain is relatively well controlled. Afebrile with stable vitals and labs remained stable. Patient reports that she feels well enough to go home today. Review of Systems Review of Systems: 14 point review of systems negative outside of what is listed above in HPI Physical Exam Physical Exam: General: Alert and oriented, no acute distress HEENT: Normocephalic, mucous membranes moist Cardiovascular: Regular rate Pulmonary: Nonlabored respirations Abdomen: Nondistended Extremities: Moves all 4 spontaneously Neuro: No gross deficits Skin: Warm, dry, no rashes noted Results & Data ([facility]) Vital Signs (Past 12 Hours) Vital Signs Temp Pulse Resp BP BP Pulse Ox 08/28/21 07:29 37.0 C 70 16 122/73 98 08/27/21 22:44 36.9 C 79 16 109/72 96 PG Care Time/CCT Total # of Minutes Spent Total Time Spent with Patient: Total time spent is greater than 50% in coordination of care (as documented) at patient's floor/unit and/or counseling patient: Coding Level of Care Code 03890 Subseq Hosp Care Lvl 2 Diagnoses S/P ureteral stent placement Z96.0 Intractable nausea and vomiting R11.2 Left flank pain R10.9
[2021-08-28] MEDS: cefTRIAXone SODIUM 2,000 MG in DEXTROSE 5% 50 ML IV SCH (09:26)
[2021-08-28] MEDS: DOCUSATE SODIUM/SENNA 50/8.6MG TAB PO SCH (09:27)
[2021-08-28] MEDS: ADVANCED PROBIOTIC 1250 MG CAPSULE PO SCH (09:27)
[2021-08-28] MEDS: POLYETHYLENE (MIRALAX) 17 GM PACK PO SCH (09:27)
--- NOTE | 2021-08-28 14:22 | Discharge Summary ---
Date of Service August 28, 2021 Admission HPI Per Admitting Provider Ashley 25yo female s/p cystoscopy, laser lithotripsy of 1.1cm left-sided kidney stone, basket extraction, and ureteral stent placement by Dr Wilhelm - [facility] [place] [facility] - on 08/24/21 presents with persistent nausea, emesis, inability to eat/drink, bladder spasm pain, left flank pain, and dysuria. The nausea/emesis started while she was driving home in the car from her procedure on Monday. The other symptoms began that night as well. She has had subjective fever with hot/cold chills since 08/24/21 as well. The left flank pain - which radiates to the left abdomen and bladder region - has been relatively constant. She has been unable to keep any antibiotics, pain meds, flomax, or ditropan down at home. She was able to keep some tylenol down since Monday. In the ER she was given anti-emetics, benadryl IV, and toradol with relief of vomiting and her pain. Pt was hospitalized for further eval and care. Admission Exam Per Admitting Provider Gen - uncomfortable appearing, dehydrated, obese Eyes - PERRL HENT - MM dry, nose clear, throat clear Neck - no JVD, no lymph nodes Heart - RRR, s1 s2, no murmur Lungs - CTA b/l, mildly decreased BS bases Back - very tender over left flank to palpation Abd - soft, tender LUQ/LLQ, ND, BS+, no HSM Ext - no edema, pulses 2+ b/l Neuro - strength 5/5 x 4 exts; DTRs 2+ b/l Skin - no generalized rash Lymph - no cervical lymph nodes Principal Diagnosis 1. HANS - resolved with IVF 2. UTI w/ Pyelonephritis 3. S/P L ureteral stent placement 4. Left nephrolithiasis s/p lithotripsy Discharge Exam Vital Signs Temp Pulse Resp BP BP Pulse Ox 08/28/21 07:29 37.0 C 70 16 122/73 98 08/27/21 22:44 36.9 C 79 16 109/72 96 08/27/21 15:45 37.1 C 60 18 115/69 99 GENERAL: 25 yo obese ashley W[place]. NAD. LUNGS: Clear to auscultation bilaterally. No accessory muscle use. No W/R/R. CARDIOVASCULAR: Regular rate and rhythm. No M/G/R. No JVD. ABDOMEN: Soft and non-distended. Bowel sounds normoactive x 4 quad. No signi ficant abdominal tenderness. GENITOURINARY: +L CVA tenderness. EXTREMITIES: No edema. Non-tender. Peripheral pulses +2/4. SKIN: Warm, dry, intact. No rashes or lesions. Discharge Data Allergies Allergy/AdvReac Type Severity Reaction Status Date / Time No Known Drug Allergies Allergy Unknown Verified 08/26/21 10:57 Consultations Urology consulted, please see consult note for further details. Procedures Performed None Ordered Studies Spec: [id number] Collected: 08/26/21 Received: 08/26/[address]: Michell Collins PA-C Source: Urine,Clean Catch OV Order: Ordered: Urine Culture Procedure Result Verified Site Urine Culture Final 08/28/21 Organism 1 Gardnerella-like bacilli [place] Count >100,000 CFU/ml Sens No Sensitivities to Follow +Mix Urine Plus Moderate Counts of Other Mixed [place] KUB X-Ray 08/26/21 12:53 KUB HISTORY: Follow up study in a patient with a left ureteral stent COMPARISON: KUB 09/23/2021, CT abdomen and pelvis 08/14/2021. FINDINGS: Nonobstructive bowel gas pattern. Mild fecal retention of the right hemicolon. A left ureteral stent is present. The proximal portion is present level of L2-L3 which previously present at the level of L1-L2. The renal shadows are partially obscured by bowel gas. No definite renal or ureteral calculi are identified. No pneumoperitoneum or pneumatosis. No fracture. IMPRESSION: 1. A left ureteral stent is in place with the proximal pigtail portion at the level of L2-L3, previously at L1-L2. This may be secondary to projection of the film versus mild stent migration. 2. No renal or ureteral calculi identified. ACT 112: Negative or not required by law. The above report was generated using voice recognition software. It may contain grammatical, syntax or spelling errors. Electronically signed by: Yaniv Venegas M.D. 08/26/2021 2:02 PM Laboratory Results - last 24 hr 08/28/21 08/28/21 06:57 06:57 WBC 7.68 RBC 4.11 L Hgb 11.3 L Hct 35.0 L MCV 85.2 MCH 27.5 MCHC 32.3 RDW Std Deviation 42.0 RDW Coeff of Alyssa 13.5 Plt Count 231 MPV 13.1 H Immature Gran % (Auto) 0.1 Neut % (Auto) 52.9 Lymph % (Auto) 38.8 [place] % (Auto) 5.2 Eos % (Auto) 2.7 Baso % (Auto) 0.3 Neut # (Auto) 4.06 Lymph # (Auto) 2.98 [place] # (Auto) 0.40 Eos # (Auto) 0.21 Baso # (Auto) 0.02 Immature Gran # (Auto) 0.01 Sodium 140 Potassium 3.9 Chloride 112 H Carbon Dioxide 21 Anion Gap 7.0 BUN 5 L Creatinine 0.87 Est Cr Clr Drug Dosing 96.1 Est GFR ( Amer) 106.6 Est GFR (Non-Af Amer) 91.9 BUN/Creatinine Ratio 5.8 L Glucose 100 H Calcium 9.2 Hospital Course (1) Acute kidney injury: Multifactoral - likely prerenal d/t n/v + UTI with pyelo. Responded/resolved after IVF resuscitation. Fluids discontinued. Diet advanced and is tolerating. She reports ongoing symptoms of nausea but is requesting food/drinks. (2) UTI (urinary tract infection): Patient received total of 3 doses of IV Rocephin 2g. UA appeared grossly infected; however, urine culture demonstrates growth of gardnerella which is likely a contaminant from vagina. Other mixed gram + noted but nothing isolated--probably reflecting contamination. D/W urology who does not believe pt is acutely infected but rather leukocytosis was reactive in nature d/t n/v. Will transition to Keflex x 7 days which can be discontinued at Urology's discretion when she follows up on Monday. (3) Pyelonephritis: Possible, given her severe left flank pain & tenderness along with u/a findings versus referred pain from stent placement. As above in #2. (4) Pain due to ureteral stent: She likely has an element of stent pain in addition to pain from UTI. Pain meds - d/c home on Percocet and Ibuprofen. Bladder pain - ditropan BID prn. Stent pain - flomax 0.4mg daily. Discharge with meds as above. D/C Pyridium. (5) Left nephrolithiasis: s/p laser litho with L stent placement on 08/24. Follow up scheduled with urology this coming Monday. (6) Nausea and vomiting: Multifactorial - on 08/24 may have been related to anesthesia. Now N/V may be secondary to UTI/?pyelo, pain meds, constipation, etc. Regardless, pt still having some nausea but appears comfortable and is requesting food/drinks. Will d/c home with antiemetic. (7) Constipation: Started on miralax BID and Senna daily. Would recommend increasing fiber in diet, push fluids (water), and stool softener OTC. (8) Depression: On IM abilify. (9) Morbid obesity with BMI of 40.0-44.9, adult: BMI 40 Patient is medically and hemodynamically stable for discharge home today with urology follow up as discussed. Total Time Total Time Spent Total Time Spent (In Minutes): <30 minutes Discharge Plan Discharge Items Patient Disposition: Home - Self-Care Reason For Visit: STENT PLACED FOR KIDNEY STONES,ALOT OF PAIN,VOMITI Discharge Diagnosis: Urinary tract infection Pain from stent placement Condition on Discharge: Good Activity: Resume your previous activity Non-emergency contact: Primary Care Provider and Urologist Call non-emergency contact if: you have any medication questions, your symptoms worsen, your pain is not controlled and your pain is worsening Follow-up/Referrals: Raji Wilhelm MD [Physician] - (within 1 week) PCP,NO [Primary Care Provider] - ([facility] [place] Navigator will call patient to establish PCP.) Diet: Regular Addtl Attending Provider Instructions: 1. Complete course of antibiotics as instructed. 2. Avoid heavy foods/meals, excessive caffeine. 3. Use pain medications as directed. DO NOT DRIVE while taking Percocet. 4. Follow up with urology on Monday as scheduled. Pending Studies at Discharge: No Stand-Alone Forms: My [employer]iet[facility], Opioid Pain Management, Smoking Cessation Medications and DC Order Prescriptions: New ondansetron HCl [Zofran] 4 mg tablet 4 mg PO Q8H PRN (Reason: nausea and vomiting) 5 Days Qty: 15 RF: 0 ibuprofen 800 mg tablet 800 mg PO Q8H PRN (Reason: pain (scale score 4-6)) Qty: 20 RF: 0 cephalexin 500 mg capsule 500 mg PO BID 7 Days Qty: 14 RF: 0 oxycodone-acetaminophen [Percocet] 5-325 mg tablet 1 - 2 tab PO Q6H Qty: 10 RF: 0 Continued tamsulosin [Flomax] 0.4 mg capsule 0.4 mg PO QPM Qty: 30 RF: 2 Abilify Maintena 400 mg suspension,extended rel syring 400 mg IM MONTHLY RF: 0 acetaminophen 500 mg Capsule 1,000 mg PO Q6H PRN (Reason: Pain) RF: 0 oxybutynin chloride [Ditropan XL] 5 mg tablet extended release 24hr 5 mg PO DAILY Qty: 20 RF: 0 docusate sodium [Col-Rite] 100 mg capsule 100 mg PO BID Qty: 20 RF: 0 Discontinued sulfamethoxazole-trimethoprim [Bactrim DS] 800-160 mg tablet 1 tab PO BID Qty: 6 RF: 0 Discharge Orders: Discharge Order (Routine); Ordered 08/28/21 Ordered By: Aisha Lane Admission Data Admit Date/Time: 08/26/21 14:32 Attending Provider: Herberth Gutierrez Admit Provider: Wagner Mcgrath Primary Care Provider: PCP,NO Other Providers: Wagner Mcgrath ; Jitendra Serrato. Other Interventions: Discharge Summary Assessment (RN) Last Done: 08/28/21 14:26 Coding Level of Care Code 59924 OBS Care - Discharge Diagnoses Acute kidney injury N17.9 UTI (urinary tract infection) N39.0 Pyelonephritis N12 Pain due to ureteral stent T83.84XA Left nephrolithiasis N20.0 Nausea and vomiting R11.2 Constipation K59.00 Depression F32.A Morbid obesity with BMI of 40.0-44.9, adult E66.01; Z68.41
== END 2021-08-28 17:27 | disposition home or self-care (01) ==
LOC: ED 10:45 → INTOOBSV 12:20 → EDINP 12:20 → SUATTDRO 12:20 → 3N 14:32